=== PATIENT | female | born 1970 | race Two or more races ===

== ENCOUNTER 2020-08-07 11:59 | Outpatient (REF) | payer OTHER, SELFPAY | END 2020-08-07 12:00 | disposition home or self-care (01) | LOC: HO.LAB 11:59 | PROVIDERS: PCP Family Medicine Adult Medicine; Visit Provider Internal Medicine | DX: Z20.822 Contact with and (suspected) exposure to COVID-19 (principal) | CPT/HCPCS: 36415; C9803; U0003 ==

== ENCOUNTER 2020-08-24 12:47 | Outpatient (REF) | payer OTHER, SELFPAY | END 2020-08-24 12:48 | disposition home or self-care (01) | LOC: HO.LAB 12:47 | PROVIDERS: Visit Provider Internal Medicine | DX: Z20.822 Contact with and (suspected) exposure to COVID-19 (principal) | CPT/HCPCS: 36415; C9803; U0003 ==

== ENCOUNTER 2021-01-10 08:10 | Outpatient (REF) | payer OTHER, SELFPAY ==
[2021-01-10 13:49] LABS: CT PCR NOT DETECTED (Not Detect.); NG PCR NOT DETECTED (Not Detect.)
[2021-01-13 15:42] LABS: HPV mRNA E6/E7 rflx Not Detected (Not Detected)
== END 2021-01-10 08:11 | disposition home or self-care (01) ==
LOC: HO.LAB 08:10
PROVIDERS: Visit Provider Advanced Practice Midwife
DX: Z01.411 Encounter for gynecological examination (general) (routine) with abnormal findings (principal); Z11.51 Encounter for screening for human papillomavirus (HPV); Z11.3 Encounter for screening for infections with a predominantly sexual mode of transmission; Z20.2 Contact with and (suspected) exposure to infections with a predominantly sexual mode of transmission; N89.8 Other specified noninflammatory disorders of vagina; R23.2 Flushing
CPT/HCPCS: 87491; 87591; 87624; 88142

== ENCOUNTER 2021-01-25 09:41 | Outpatient (REF) | payer OTHER, SELFPAY ==
--- NOTE | ~2021-01-25 | MM_ITS ---
EXAMINATION: MM SCREENING DIGITAL BREAST TOMOSYNTHESIS, BILATERAL CLINICAL INFORMATION: Screening. Asymptomatic. The lifetime risk of breast cancer based on the Tyrer-Cuzick Model is 12.8%. COMPARISON: Mammography: June 15, 2016 and studies dating back to September 15, 2013 TECHNIQUE: Digital breast tomosynthesis is performed in both the craniocaudal and mediolateral oblique views along with computer-aided detection (CAD). Synthesized 2D images are generated from the tomosynthesis. FINDINGS: There are scattered areas of fibroglandular density (ACR BI-RADS breast composition Category b). There are no significant masses, abnormal calcifications, or other abnormalities. MM/MM tomosynthesis screening BI IMPRESSION: There are no significant changes from prior study. ASSESSMENT: BI-RADS 1: Negative RECOMMENDATION: Routine annual mammography screening. This patient's information was entered into a reminder system with a target due date for their next mammogram.
--- NOTE | 2021-01-25 09:49 | EMG_ITS ---
Left median and ulnar motor and sensory studies were performed. Left radial sensory study was performed and paraspinal muscles were tested with a needle. IMPRESSION: Mild left median neuropathy across carpal tunnel. MD LAKHWINDER Luciano/GONZALEZ / [id number]
== END 2021-01-25 09:42 | disposition home or self-care (01) ==
LOC: HO.NEURO 09:41
PROVIDERS: PCP Internal Medicine; Visit Provider Internal Medicine
DX: Z12.31 Encounter for screening mammogram for malignant neoplasm of breast (principal); R20.0 Anesthesia of skin
CPT/HCPCS: 77063; 77067; 95886; 95909

== ENCOUNTER 2021-01-26 09:16 | Observation (INO) | payer OTHER, SELFPAY ==
[2021-01-26] VITALS (7 sets, daily range): BP systolic 110–146; BP diastolic 54–70; PULSE 60–79; RESP 16–20; TEMP 36–36.6; O2SAT 97–100; BMI 33.3; BMI 34.2
--- NOTE | ~2021-01-26 | CT_ITS ---
EXAMINATION: CT ABDOMEN AND PELVIS WITH CONTRAST CLINICAL INFORMATION: Abdominal/epigastric pain COMPARISON: Previous CT of the abdomen and pelvis August 2017 TECHNIQUE: Multidetector volumetric images were obtained from the superior aspect of the liver through the pubic symphysis following administration 85 mL of Omnipaque 350 intravenous contrast. Sagittal and coronal reformatted images were obtained on the technologist's workstation. Oral contrast: Yes This CT examination was performed using dose optimization techniques as appropriate, variously including the following: *Automated exposure control *Adjustment of mA and/or kV according to patient size (this includes techniques or standardized protocols for targeted exams where dose is matched to indication/reason for exam; i.e. extremities or head) *Use of iterative reconstruction technique DLP: 1003 mGy-cm FINDINGS: LUNG BASES: The visualized lung bases are unremarkable. LIVER, GALLBLADDER, AND BILIARY TREE: The liver is normal in size, shape, and attenuation. No focal hepatic lesion. The gallbladder is been removed. There is mild intra and extrahepatic biliary duct dilatation. This may be normal postcholecystectomy. PANCREAS: Unremarkable. SPLEEN: Unremarkable. ADRENAL GLANDS: Unremarkable. KIDNEYS AND URETERS: The kidneys are normal in size, shape, and attenuation. No hydronephrosis, hydroureter, or calculi seen. No perinephric stranding. BLADDER: Not optimally distended. GASTROINTESTINAL TRACT: The small and large bowel are unremarkable. Tip of the appendix is slightly dilated measuring 9 mm and fluid-filled. The base of the appendix is normal. The periappendiceal fat is normal. There is no fluid seen. Findings are questionable for early tip appendicitis. There is mild wall thickening and low attenuation in the wall of the cecum and proximal ascending colon. There are prominent vasa recta. Findings are questionable for mild colitis. There are postsurgical changes following gastric bypass. ABDOMINAL WALL: No significant hernia is appreciated. LYMPH NODES: Normal. VASCULAR: Unremarkable. PELVIC VISCERA: There is trace fluid in the pelvis. The uterus and adnexa are unremarkable. OSSEOUS STRUCTURES: There is degenerative disc disease at L4-L5. CT/CT abdomen pelvis w con IMPRESSION: Slightly dilated fluid-filled tip of the appendix. Findings are questionable for early tip appendicitis. Mild wall thickening and low attenuation in the wall of the cecum and proximal ascending colon and prominent vasa recta questionable for mild colitis. Postsurgical change following gastric bypass.
--- NOTE | 2021-01-26 11:03 | ECG_ITS ---
Test Reason : ABDOMINAL PAIN Blood Pressure : / mmHG Vent. Rate : 063 BPM Atrial Rate : 063 BPM P-R Int : 132 ms QRS Dur : 090 ms QT Int : 412 ms P-R-T Axes : 010 011 005 degrees QTc Int : 421 ms Normal sinus rhythm Normal ECG When compared to the previous EKG of No significant changes seen Referred By: Amisha Head Electronically Signed By:HUANG HERRERA MD
[2021-01-26 11:41] LABS: MANUAL DIFF FLAG NO
[2021-01-26 11:44] LABS: Basophils Percent Auto 0.3 % (0-2); Hematocrit 33.7 % (37-47); Hemoglobin 10.1 g/dl (12.0-16.0); Imm Gran Abs Auto 0.03 X10*3/uL (0.00-0.03); Imm Gran Pct Auto 0.3 % (0.0-0.4); Lymphocytes Absolute Auto 0.9 X10*3/uL (1.2-4.9); Lymphocytes Percent Auto 8.1 % (20-40); Mean Corpuscular Volume 80.2 fL (80-98); Monocytes Absolute Auto 0.5 X10*3/uL (0.1-1.2); Neutrophils Absolute Auto 9.7 X10*3/uL (2.0-8.3); Neutrophils Percent Auto 87.3 % (45-73); Platelet Count 310 X10*3/uL (160-400); Red Cell Distribution Width 16.8 % (11.0-16.0); White Blood Count 11.1 X10*3/uL (4.8-10.8)
--- NOTE | 2021-01-26 11:51 | ED_ITS ---
HPI - Abdominal Pain General Chief Complaint: Abdominal Pain Stated Complaint: ABD PAIN Time Seen by Provider: 01/26/21 11:02 Source: patient Mode of arrival: ambulatory Limitations: no limitations History of Present Illness HPI narrative: 50 y/o healthy female with history of cholecystectomy in the past, s/p gastric bypass 2003 presents to the ER with acute onset of epigastric/central pain that woke her from sleep at midnight last night. She states the pain is constant, sharp and cramping at the same time. It does not radiate. She has no nausea, vomiting, diarrhea, SOB or chest pain. She denies fever or chills. MD elicited complaint: abdominal pain Pertinent past history: none Onset (ago): hour(s) (12) Pain Consistency: constant Location: epigastric Severity: severe Pain scale (0-10): 10 Quality: cramping and sharp Radiation: none Migration to: no migration Exacerbating factors: nothing Relieving factors: nothing Associated symptoms: denies other symptoms Related Data Home Medications Medication Instructions Recorded Confirmed No Known Home Meds 01/26/21 01/26/21 Allergies Allergy/AdvReac Type Severity Reaction Status Date / Time morphine [MORPHINE] AdvReac Intermediate BAD Verified 01/10/21 08:22 REACTION , respiratory, SOB Review of Systems Review of Systems Constitutional: No Fever, No Chills ENT/Mouth: No sore throat, No Rhinorrhea, No Swallowing Difficulty Cardiovascular: No Chest Pain, No SOB, No Orthopnea, No Edema Respiratory: No Cough, No Sputum, No Wheezing, No dyspnea Gastrointestinal: No Nausea, No Vomiting, No Diarrhea, + abdominal Pain, No Hematochezia, No Melena Genitourinary: No Dysuria, No Urinary Frequency, No Hematuria Musculoskeletal: No joint pain, No Myalgias Skin: No Skin Lesions, No rash Neuro: No Weakness, No Numbness, No Dizziness, No Headache Psych: + Anxiety/Panic, No Depression Heme/Lymph: No Bruising, No Lymphadenopathy Endocrine: No Polyuria, No Polydipsia Physical Exam Vital Signs: Vital Signs: Last Vital Signs Temp 97.8 F 01/26/21 13:35 Pulse 62 01/26/21 13:35 Resp 20 01/26/21 13:35 BP 133/64 01/26/21 13:35 Pulse Ox 100 01/26/21 13:35 Body Mass Index 33.3 Appearance: Alert. Oriented X3. No acute distress. Eyes: Pupils equal, round and reactive to light. ENT: Pharynx normal. Neck: Normal inspection. Neck supple. CVS: Normal heart rate and rhythm. Pulses normal. Respiratory: No respiratory distress. Breath sounds normal. Abdomen: Soft with epigastric and periumbilical tenderness and guarding. +BS x4 Skin: Skin warm and dry. Normal skin color. Normal skin turgor. No rashes. Extremities: No lower extremity edema. Neuro: Oriented X 3. No motor deficit. No sensory deficit. Course Course Course Narrative: 50 y/o female presenting with acute onset of severe epigastric pain that started last night. Concern for gastrtitis, GERD, retained biliary stone, pancreatitis, or possible cardiac etiology. EKG and labs ordered as well as GI cocktail. Will reassess Reevaluation(s) Reevaluation #1: Patient continues to c/o severe abdominal pain depsite GI cocktail. IV Morphine ordered as well as CT scan for further evaluation. Reevaluation #2: CT scan Slightly dilated fluid-filled tip of the appendix. Findings are questionable for early tip appendicitis. Mild wall thickening and low attenuation in the wall of the cecum and proximal ascending colon and prominent vasa recta questionable for mild colitis. Postsurgical change f ollowing gastric bypass. Lactic acid, blood cultures, IVF and Zosyn ordered. Not septic at this time. Dr. Hudson consulted for admission. Reevaluation #3: Dr. Hudson evaluted the patient and will admit for further management. Consultations Consultation #1: General Surgery - Dr. Hudson [facility] - Abdominal Pain Lab Data Attestation: I reviewed the patient's lab results. Result diagrams: 01/26/21 11:35 01/26/21 11:35 Labs: Lab Results 01/26/21 01/26/21 01/26/21 Range/Units 11:35 11:35 11:35 WBC 11.1 H (4.8-10.8) X10*3/uL RBC 4.20 (4.20-5.50) X10*6/uL Hgb 10.1 L (12.0-16.0) g/dl Hct 33.7 L (37-47) % MCV 80.2 (80-98) fL MCH 24.0 L (27.0-33.0) pg MCHC 30.0 L (31.0-35.0) g/dl RDW 16.8 H (11.0-16.0) % Plt Count 310 (160-400) X10*3/uL MPV 10.0 (9.4-12.3) fL Immature Gran % (Auto) 0.3 (0.0-0.4) % Neut % (Auto) 87.3 H (45-73) % Lymph % (Auto) 8.1 L (20-40) % [place] % (Auto) 4.0 (2-11) % Eos % (Auto) 0.0 (0-4) % Baso % (Auto) 0.3 (0-2) % Lymph # (Auto) 0.9 L (1.2-4.9) X10*3/uL [place] # (Auto) 0.5 (0.1-1.2) X10*3/uL Eos # (Auto) 0.0 (0.0-0.4) X10*3/uL Baso # (Auto) 0.0 (0.0-0.2) X10*3/uL Abs Immat Gran (auto) 0.03 (0.00-0.03) X10*3/uL Absolute Neuts (auto) 9.7 H (2.0-8.3) X10*3/uL Absolute Nucleated RBC 0.000 (0.0-0.012) X10*3/uL Nucleated RBC % (auto) 0.0 (0.0-0.2) /100WBC Hold Blue Top Sodium 138 (135-145) mmol/L Potassium 4.2 (3.3-5.1) mmol/L Chloride 106 (96-108) mmol/L Carbon Dioxide 23 (22-29) mmol/L Anion Gap 13 (12-20) BUN 12 (9-16) mg/dL Creatinine 0.68 (0.5-1.4) mg/dL Estim Creat Clear Calc 122.0 Estimated GFR > 60 Random Glucose 109 (60-115) mg/dL Calcium 9.1 (8.4-10.2) mg/dL Magnesium 2.2 (1.6-2.6) mg/dL Total Bilirubin 0.4 (0.0-1.0) mg/dL Direct Bilirubin 0.2 (0.0-0.5) mg/dL AST 14 (5-31) U/L ALT 10 (0-31) U/L Alkaline Phosphatase 61 (39-117) U/L Troponin I High Sens < 3.5 (<3.5-17.0) ng/L Total Protein 7.4 (6.5-8.0) g/dL Albumin 4.3 (3.5-5.0) g/dL Lipase (8-78) U/L Urine Color Urine Appearance Urine pH (5.0-8.0) Ur Specific [place] (1.005-1.025) Urine Protein (NEG-TRACE) MG/DL Urine Glucose (UA) (NEG) MG/DL Urine Ketones (NEG) MG/DL Urine Blood (NEG) Urine Nitrite (NEG) Ur Leukocyte Esterase (NEG) 01/26/21 01/26/21 01/26/21 Range/Units 11:35 11:36 13:20 WBC (4.8-10.8) X10*3/uL RBC (4.20-5.50) X10*6/uL Hgb (12.0-16.0) g/dl Hct (37-47) % MCV (80-98) fL MCH (27.0-33.0) pg MCHC (31.0-35.0) g/dl RDW (11.0-16.0) % Plt Count (160-400) X10*3/uL MPV (9.4-12.3) fL Immature Gran % (Auto) (0.0-0.4) % Neut % (Auto) (45-73) % Lymph % (Auto) (20-40) % [place] % (Auto) (2-11) % Eos % (Auto) (0-4) % Baso % (Auto) (0-2) % Lymph # (Auto) (1.2-4.9) X10*3/uL [place] # (Auto) (0.1-1.2) X10*3/uL Eos # (Auto) (0.0-0.4) X10*3/uL Baso # (Auto) (0.0-0.2) X10*3/uL Abs Immat Gran (auto) (0.00-0.03) X10*3/uL Absolute Neuts (auto) (2.0-8.3) X10*3/uL Absolute Nucleated RBC (0.0-0.012) X10*3/uL Nucleated RBC % (auto) (0.0-0.2) /100WBC Hold Blue Top SEE NOTE Sodium (135-145) mmol/L Potassium (3.3-5.1) mmol/L Chloride (96-108) mmol/L Carbon Dioxide (22-29) mmol/L Anion Gap (12-20) BUN (9-16) mg/dL Creatinine (0.5-1.4) mg/dL Estim Creat Clear Calc Estimated GFR Random Glucose (60-115) mg/dL Calcium (8.4-10.2) mg/dL Magnesium (1.6-2.6) mg/dL Total Bilirubin (0.0-1.0) mg/dL Direct Bilirubin (0.0-0.5) mg/dL AST (5-31) U/L ALT (0-31) U/L Alkaline Phosphatase (39-117) U/L Troponin I High Sens (<3.5-17.0) ng/L Total Protein (6.5-8.0) g/dL Albumin (3.5-5.0) g/dL Lipase 29 (8-78) U/L Urine Color YELLOW Urine Appearance CLEAR Urine pH 6.0 (5.0-8.0) Ur Specific [place] 1.020 (1.005-1.025) Urine Protein NEG (NEG-TRACE) MG/DL Urine Glucose (UA) NEG (NEG) MG/DL Urine Ketones 5 (NEG) MG/DL Urine Blood NEG (NEG) Urine Nitrite NEG (NEG) Ur Leukocyte Esterase NEG (NEG) ECG Data Attestation: I personally reviewed and interpreted this ECG as follows: ECG interpretation date: 01/26/21 ECG interpretation time: 12:58 Interpretation: normal sinus rhythm, HR 63 bpm, OR interval is normal, isoloated inverted t-wave in V1. NO ST segment elevations or depressions. Discharge Plan Discharge Prescriptions: No Action No Known Home Meds RF: 0 PMFSH Past Medical History Attestation statement: The following information was validated with the patient. Medical History Arm numbness Left knee pain Left shoulder pain Obese Screening for cervical cancer Surgical History H/O gastric bypass Hx laparoscopic cholecystectomy Hx of tubal ligation Family History Family History Mother No problems noted. Father No problems noted. Social History Social History Alcohol intake: former Patient Tobacco Use Status: Never used Tobacco Advance Directives: Yes Advance Directives Information Provided: No Advance Directives on File: No
[2021-01-26] MEDS: Magnesium Hydrox/Alum Hydrox 30 ML ORAL.SUSP PO (12:01)
[2021-01-26] MEDS: PHENobarb/Hyoscy/Atropine/Scop 10 ML ELIXIR PO (12:01)
[2021-01-26] MEDS: Lidocaine HCl Viscous 2 % 15 ML SOLUTION MUCOUS MEM (12:02)
[2021-01-26 12:03] LABS: Alanine Aminotransferase 10 U/L (0-31); Albumin Level 4.3 g/dL (3.5-5.0); Alkaline Phosphatase 61 U/L (39-117); Anion Gap 13 (12-20); Aspartate Amino Transferase 14 U/L (5-31); Bilirubin Direct 0.2 mg/dL (0.0-0.5); Bilirubin Total 0.4 mg/dL (0.0-1.0); Blood Urea Nitrogen 12 mg/dL (9-16); Calcium 9.1 mg/dL (8.4-10.2); Carbon Dioxide 23 mmol/L (22-29); Chloride 106 mmol/L (96-108); Estimated Glomerular Filt Rate > 60; Glucose Random 109 mg/dL (60-115); Magnesium 2.2 mg/dL (1.6-2.6); Potassium 4.2 mmol/L (3.3-5.1); Sodium 138 mmol/L (135-145); Total Protein 7.4 g/dL (6.5-8.0)
[2021-01-26 12:04] LABS: Lipase 29 U/L (8-78)
[2021-01-26 12:06] LABS: Troponin-I High Sensitivity < 3.5 ng/L (<3.5-17.0)
[2021-01-26] MEDS: Morphine Sulfate 4 MG/ML CARTRIDGE IVPUSH ×2 (12:06→16:11)
[2021-01-26] MEDS: Omeprazole 40 MG CAPSULE.DR PO (13:14)
[2021-01-26 13:29] LABS: Glucose Urine UA NEG (NEG); Leukocyte Esterase Urine NEG (NEG); Nitrite Urine NEG (NEG); Urine Blood NEG (NEG); Urine Ketones 5 MG/DL (NEG); Urine Protein NEG (NEG-TRACE)
[2021-01-26 13:30] LABS: Appearance Urine CLEAR; Color Urine YELLOW
[2021-01-26] MEDS: iohexoL 350 MG/ML 100 ML INFUS..BTL IV (13:42)
--- NOTE | 2021-01-26 14:58 | PM.HPGS ---
History of Present Illness History of Present Illness Date of Service: 01/26/21 Chief complaint: ABD PAIN Narrative: Deepali ALAS is a 50 year old female presenting to the emergency department with complaints of abdominal pain in the periumbilical location. The pain began suddenly at around 03:00 and woke her from sleep. She subsequently presented to the ED with complaints of 10/10 abdominal pain. She denies a previous history of similar pain. She denies nausea or vomiting but does report anorexia. She denies fever or chills. In the emergency department she was noted to be tender in the epigastrium and right lower quadrant. Workup with laboratories revealed elevated WBC of 11. CT of the abdomen and pelvis revealed a slightly thickened appendix at the tip with a normal base. No surrounding inflammation or fluid was identified. Changes were noted in the cecum suggestive of a possible colitis as well. The patient is admitted for observation and IV antibiotics with possible early appendicitis or colitis. Review of Systems Review of Systems: Yes all other systems are reviewed and are negative Constitutional: Constitutional: Reports anorexia, Denies chills and Denies fever(s) Cardiovascular: Cardiovascular: Denies chest pain, Denies irregular heart rhythm and Denies leg edema Respiratory: Respiratory: Denies chest congestion, Denies cough and Denies wheezing Gastrointestinal: Gastrointestinal: Reports abdominal pain, Denies hematochezia, Denies constipation, Denies diarrhea, Denies nausea and Denies vomiting Genitourinary: Genitourinary: Reports no additional female genitourinary complaints Hematologic/Lymphatic: Hematologic/Lymphatic: Denies lymphadenopathy Allergic/Immunologic: Allergic/Immunologic: Denies wheezing PMFSH Past Medical History Medical History Arm numbness Left knee pain Left shoulder pain Obese Screening for cervical cancer Family History Family History Mother No problems noted. Father No problems noted. Surgical History Surgical History H/O gastric bypass Hx laparoscopic cholecystectomy Hx of tubal ligation Social History Social History Alcohol intake: former Patient Tobacco Use Status: Never used Tobacco Advance Directives: Yes Advance Directives Information Provided: No Advance Directives on File: No Meds Allergies Allergy/AdvReac Type Severity Reaction Status Date / Time morphine [MORPHINE] AdvReac Intermediate BAD Verified 01/10/21 08:22 REACTION , respiratory, SOB Active Medications: Current Medications Generic Name Dose Route Start Last Admin Trade Name Freq PRN Reason Stop Dose Admin Sodium Chloride 1,000 mls @ 999 mls/hr 01/26/21 14:30 Ns IVCONT 01/26/21 15:30 .[id number] [facility] Pharmacy Consult 1 each 01/26/21 14:18 Consult Rx Perform Med Rec MISCELLANE ONCE PRN Consult order Home Medications Medication Instructions Recorded Confirmed Last Taken Type No Known Home Meds 01/26/21 01/26/21 Unknown History Physical Exam Vital Signs: Vital Signs: Last Vital Signs Temp 97.8 F 01/26/21 13:35 Pulse 62 01/26/21 13:35 Resp 20 01/26/21 13:35 BP 133/64 01/26/21 13:35 Pulse Ox 100 01/26/21 13:35 Body Mass Index 33.3 Const: General: cooperative, comfortable, no acute distress, well developed, alert and awake Nutritional Appearance: well nourished Orientation/consciousness: patient oriented x3 Limitations: no limitations Eyes: Sclerae: sclerae normal EOM: EOMs intact bilaterally Resp: Effort & Inspection: normal respiratory effort, no cough, no stridor and not tachypneic Auscultation: clear to auscultation bilaterally Cardio: Jugular venous distension: no JVD Rate: regular rate Rhythm: regular rhythm GI: Inspection: Yes normal to inspection Palpation (GI): Soft to palpation, Tenderness to palpation present (GI) in the RLQ and periumbilically, no guarding, not rigid and No Rebound tenderness present Percussion: Yes normal to percussion Auscultation: normal bowel sounds Rectal Exam - Female: deferred Skin: General skin exam: no rashes or lesions noted Neuro: General: patient oriented x3 Extrem: General: Yes no clubbing, cyanosis or edema Results Results Labs: Short CBC 01/26/21 Range/Units 11:35 WBC 11.1 H (4.8-10.8) X10*3/uL Hgb 10.1 L (12.0-16.0) g/dl Hct 33.7 L (37-47) % Plt Count 310 (160-400) X10*3/uL BMP 01/26/21 11:35 Sodium 138 Potassium 4.2 Chloride 106 Carbon Dioxide 23 BUN 12 Creatinine 0.68 Calcium 9.1 Liver Function 01/26/21 Range/Units 11:35 Total Bilirubin 0.4 (0.0-1.0) mg/dL Direct Bilirubin 0.2 (0.0-0.5) mg/dL AST 14 (5-31) U/L ALT 10 (0-31) U/L Alkaline Phosphatase 61 (39-117) U/L Albumin 4.3 (3.5-5.0) g/dL Urine 01/26/21 Range/Units 13:20 Urine Color YELLOW Urine Appearance CLEAR Urine pH 6.0 (5.0-8.0) Ur Specific [place] 1.020 (1.005-1.025) Urine Protein NEG (NEG-TRACE) MG/DL Urine Glucose (UA) NEG (NEG) MG/DL Assessment and Plan (1) Appendicitis: Status: Acute patient presents with the onset of abdominal pain and periumbilical location since this morning found on workup to have a mildly elevated WBC (11) and minimal changes on CT the abdomen pelvis with thickened tip of the appendix with no other inflammatory changes surrounding the appendix as well as thickening of the cecum suggestive of a colitis. Findings may suggest early appendicitis verses colitis. The findings were discussed in detail with the patient. Options include admission with IV antibiotics and observation verses laparoscopic appendectomy. The relative risks and benefits of each were discussed and the patient is comfortable with admission for observation with IV antibiotics. If he has improved by tomorrow she can be converted to oral antibiotics and discharged to home. On the other hand if her symptoms seem to worsen, laparoscopic appendectomy may be warranted. She will be kept NPO on IV fluids and antibiotics. A repeat CBC will be ordered for the a.m.. Quality Stroke Does the patient have a stroke diagnosis?: No VTE Prior VTE?: No VTE Risk Level:: Medical - low VTE Device Contraindication: N/A - Device Ordered VTE Drug Contraindication: Treatment Not Indicated Procedures Date of Service Date of Service: 01/26/21
[2021-01-26] MEDS: Piperacillin Sodium/Tazobactam 3.375 GM in 0.9 % Sodium Chloride 50 ML IV ×2 (16:01→21:01)
[2021-01-26] MEDS: 0.9 % Sodium Chloride 1,000 ML 999 ML IVCONT (16:01)
[2021-01-26 16:23] LABS: COVID-19 Test Negative (Negative)
[2021-01-26] MEDS: Dextrose 5 % and Lactated Ring 1,000 ML 125 ML IVCONT (19:33)
[2021-01-26] MEDS: 0.9 % Sodium Chloride Flush 3 ML SYRINGE IVFLUSH (21:03)
[2021-01-26] MEDS: Acetaminophen 325 MG TABLET 650 MG PO (21:17)
[2021-01-26] MEDS: oxyCODONE HCl Immed Release 5 MG TABLET PO (21:18)
[2021-01-27 03:48] VITALS: BP 106/51; PULSE 66; RESP 16; TEMP 36.4; O2SAT 99
[2021-01-27] MEDS: Piperacillin Sodium/Tazobactam 3.375 GM in 0.9 % Sodium Chloride 50 ML IV ×4 (03:48→20:35)
[2021-01-27] MEDS: Dextrose 5 % and Lactated Ring 1,000 ML 125 ML IVCONT ×3 (03:49→20:31)
[2021-01-27 06:44] LABS: MANUAL DIFF FLAG NO
[2021-01-27 06:55] LABS: Basophils Percent Auto 0.4 % (0-2); Eosinophils Absolute Auto 0.1 X10*3/uL (0.0-0.4); Eosinophils Percent Auto 1.1 % (0-4); Hematocrit 29.5 % (37-47); Imm Gran Abs Auto 0.02 X10*3/uL (0.00-0.03); Imm Gran Pct Auto 0.4 % (0.0-0.4); Lymphocytes Absolute Auto 1.1 X10*3/uL (1.2-4.9); Lymphocytes Percent Auto 20.4 % (20-40); Mean Corpuscular HGB Conc 30.5 g/dl (31.0-35.0); Mean Corpuscular Hemoglobin 24.5 pg (27.0-33.0); Mean Corpuscular Volume 80.2 fL (80-98); Mean Platelet Volume 10.8 fL (9.4-12.3); Monocytes Absolute Auto 0.5 X10*3/uL (0.1-1.2); Monocytes Percent Auto 8.1 % (2-11); Neutrophils Absolute Auto 3.9 X10*3/uL (2.0-8.3); Neutrophils Percent Auto 69.6 % (45-73); Platelet Count 249 X10*3/uL (160-400); Red Blood Count 3.68 X10*6/uL (4.20-5.50); Red Cell Distribution Width 16.7 % (11.0-16.0); White Blood Count 5.6 X10*3/uL (4.8-10.8)
[2021-01-27 08:00] VITALS: BP 99/56; PULSE 71; RESP 16; TEMP 36.5; O2SAT 98
--- NOTE | 2021-01-27 09:01 | P.PNGS_ITS ---
Subjective Subjective Date of Service: 01/27/21 Interval history: feels better still has mild pain, diffuse described more as bloating but much improved than yesterday no N/V good flatus Physical Exam Vital Signs: Vital Signs: Last Vital Signs Temp 97.7 F 01/27/21 08:00 Pulse 71 01/27/21 08:00 Resp 16 01/27/21 08:00 BP 99/56 L 01/27/21 08:00 Pulse Ox 98 01/27/21 08:00 Body Mass Index 34.2 Laboratory Results - last 24 hr 01/26/21 01/26/21 01/26/21 11:35 11:35 11:35 WBC 11.1 H RBC 4.20 Hgb 10.1 L Hct 33.7 L MCV 80.2 MCH 24.0 L MCHC 30.0 L RDW 16.8 H Plt Count 310 MPV 10.0 Immature Gran % (A uto) 0.3 Neut % (Auto) 87.3 H Lymph % (Auto) 8.1 L [place] % (Auto) 4.0 Eos % (Auto) 0.0 Baso % (Auto) 0.3 Lymph # (Auto) 0.9 L [place] # (Auto) 0.5 Eos # (Auto) 0.0 Baso # (Auto) 0.0 Abs Immat Gran (au to) 0.03 Absolute Neuts (au to) 9.7 H Absolute Nucleated RBC 0.000 Nucleated RBC % (a uto) 0.0 Hold Blue Top Sodium 138 Potassium 4.2 Chloride 106 Carbon Dioxide 23 Anion Gap 13 BUN 12 Creatinine 0.68 Estim Creat Clear Calc 122.0 Estimated GFR > 60 Random Glucose 109 Lactic Acid Calcium 9.1 Magnesium 2.2 Total Bilirubin 0.4 Direct Bilirubin 0.2 AST 14 ALT 10 Alkaline Phosphata se 61 Troponin I High Se ns < 3.5 Total Protein 7.4 Albumin 4.3 Lipase Urine Color Urine Appearance Urine pH Ur Specific Gravit y Urine Protein Urine Glucose (UA) Urine Ketones Urine Blood Urine Nitrite Ur Leukocyte Racquel ase COVID-19 ([facility]) COVID-19 Clin Com 01/26/21 01/26/21 01/26/21 11:35 11:36 13:20 WBC RBC Hgb Hct MCV MCH MCHC RDW Plt Count MPV Immature Gran % (A uto) Neut % (Auto) Lymph % (Auto) [place] % (Auto) Eos % (Auto) Baso % (Auto) Lymph # (Auto) [place] # (Auto) Eos # (Auto) Baso # (Auto) Abs Immat Gran (au to) Absolute Neuts (au to) Absolute Nucleated RBC Nucleated RBC % (a uto) Hold Blue Top SEE NOTE Sodium Potassium Chloride Carbon Dioxide Anion Gap BUN Creatinine Estim Creat Clear Calc Estimated GFR Random Glucose Lactic Acid Calcium Magnesium Total Bilirubin Direct Bilirubin AST ALT Alkaline Phosphata se Troponin I High Se ns Total Protein Albumin Lipase 29 Urine Color YELLOW Urine Appearance CLEAR Urine pH 6.0 Ur Specific Gravit y 1.020 Urine Protein NEG Urine Glucose (UA) NEG Urine Ketones 5 Urine Blood NEG Urine Nitrite NEG Ur Leukocyte Racquel ase NEG COVID-19 ([facility]) COVID-[place] [employer] 01/26/21 01/26/21 01/27/21 15:31 15:59 06:03 WBC 5.6 RBC 3.68 L Hgb 9.0 L Hct 29.5 L MCV 80.2 MCH 24.5 L MCHC 30.5 L RDW 16.7 H Plt Count 249 MPV 10.8 Immature Gran % (A uto) 0.4 Neut % (Auto) 69.6 Lymph % (Auto) 20.4 [place] % (Auto) 8.1 Eos % (Auto) 1.1 Baso % (Auto) 0.4 Lymph # (Auto) 1.1 L [place] # (Auto) 0.5 Eos # (Auto) 0.1 Baso # (Auto) 0.0 Abs Immat Gran (au to) 0.02 Absolute Neuts (au to) 3.9 Absolute Nucleated RBC 0.000 Nucleated RBC % (a uto) 0.0 Hold Blue Top Sodium Potassium Chloride Carbon Dioxide Anion Gap BUN Creatinine Estim Creat Clear Calc Estimated GFR Random Glucose Lactic Acid 1.0 Calcium Magnesium Total Bilirubin Direct Bilirubin AST ALT Alkaline Phosphata se Troponin I High Se ns Total Protein Albumin Lipase Urine Color Urine Appearance Urine pH Ur Specific Gravit y Urine Protein Urine Glucose (UA) Urine Ketones Urine Blood Urine Nitrite Ur Leukocyte Racquel ase COVID-19 ([facility]) Negative COVID-19 Clin Com See Note Const: General: comfortable and no acute distress Resp: Effort & Inspection: normal respiratory effort Cardio: Rate: regular rate GI: Other: very minimal tenderness diffusely, not localized to RLQ Inspection: No distended Palpation (GI): Soft to palpation, not firm, no guarding and not rigid Progress Note: A&P Assessment and plan (1) Abdominal pain: Status: Acute Assessment and Plan: pain much improved no significant tenderness WBC normal overall picture not c/w acute appendicitis despite CT findings clear liquids, advance as tolerated exam very benign Hg low - monitor continue abx for now Fall Risk Details Current Medications: Current Medications Generic Name Dose Route Start Last Admin Trade Name Freq PRN Reason Stop Dose Admin Acetaminophen 650 mg 01/26/21 18:47 01/26/21 21:17 Acetaminophen 325 Mg Tablet PO 650 mg Q6H PRN Administration Pain, Mild (Pain Scale 1-3) Hydromorphone HCl 0.5 mg 01/26/21 18:47 Hydromorphone Hcl 0.5 Mg/0.5 Ml Syringe IVPUSH Q4H PRN Pain, Severe (Pain Scale 7-10) Piperacillin Sod/Tazobactam 50 mls @ 100 mls/hr 01/26/21 22:00 01/27/21 04:21 Sod 3.375 gm/ Sodium Chloride IV Infused Q6H [facility] Infusion Dextrose/Lactated Ringer's 1,000 mls @ 125 mls/hr 01/26/21 18:47 01/27/21 04:22 D5lr IVCONT 125 mls/hr .Q8H [facility] Infusion Ondansetron HCl 4 mg 01/26/21 18:47 Ondansetron Hcl 4 Mg/2 Ml Vial IVPUSH Q8H PRN Nausea and Vomiting Oxycodone HCl 5 mg 01/26/21 18:47 01/26/21 21:18 Oxycodone Hcl Immed Release 5 Mg Tablet PO 5 mg Q6H PRN Administration Pain, Moderate (Pain Scale 4-6 Pharmacy Consult 1 each 01/26/21 14:18 Consult Rx Perform Med Rec MISCELLANE ONCE PRN Consult order Sodium Chloride 3 ml 01/26/21 18:47 01/26/21 21:03 0.9 % Sodium Chloride Flush 3 Ml Syringe IVFLUSH 3 ml QSHIFT [facility] Administration Zolpidem Tartrate 5 mg 01/26/21 18:47 Zolpidem Tartrate 5 Mg Tablet PO BEDTIME PRN Insomnia Time Spent With Patient Time: Total time spent is greater than 50% in coordination of care (as documented) at patient's floor/unit and/or counseling patient: Time with patient: 15 - 24 minutes Procedures Date of Service Date of Service: 01/27/21 Quality Stroke Does the patient have a stroke diagnosis?: No VTE Prior VTE?: No VTE Risk Level:: Surgical - low VTE Device Contraindication: N/A - Device Ordered VTE Drug Contraindication: Treatment Not Indicated
[2021-01-27] MEDS: 0.9 % Sodium Chloride Flush 3 ML SYRINGE IVFLUSH (09:06)
[2021-01-27] MEDS: oxyCODONE HCl Immed Release 5 MG TABLET PO ×2 (09:13→20:29)
--- NOTE | 2021-01-27 09:50 | MHC.CM.PN ---
HIRO 01/27/21 FEMALE 50 COLITIS LIVES ALONE, INDEPENDENT ALL FUNCTIONAL MOBILITY. [facility] HOME NO SERVICES FAMILY TRANSPORTATION. CM WILL FOLLOW TO ASSESS FOR A CHANGE IN SERVICES.
[2021-01-27 11:26] VITALS: BP 111/70; PULSE 61; RESP 17; TEMP 36.7; O2SAT 98
[2021-01-27] MEDS: Acetaminophen 325 MG TABLET 650 MG PO ×2 (12:45→20:30)
[2021-01-27 15:24] VITALS: BP 118/68; PULSE 66; RESP 18; TEMP 35.9; O2SAT 98
[2021-01-27 19:03] VITALS: BP 122/71; PULSE 65; RESP 18; TEMP 36.1; O2SAT 100
[2021-01-27 23:40] VITALS: BP 114/72; PULSE 70; RESP 16; TEMP 36.2; O2SAT 99
[2021-01-28 03:46] VITALS: BP 98/58; PULSE 59; RESP 16; TEMP 36; O2SAT 98
[2021-01-28] MEDS: Piperacillin Sodium/Tazobactam 3.375 GM in 0.9 % Sodium Chloride 50 ML IV ×4 (03:53→20:29)
[2021-01-28] MEDS: Dextrose 5 % and Lactated Ring 1,000 ML 125 ML IVCONT ×3 (03:55→20:28)
[2021-01-28 07:34] VITALS: BP 110/52; PULSE 70; RESP 17; TEMP 37.7; O2SAT 98
--- NOTE | 2021-01-28 09:54 | PM.PNGS ---
Subjective Subjective Date of Service: 01/28/21 Interval history: continues to feel better hungry and wants to eat minimal pain Physical Exam Vital Signs: Vital Signs: Last Vital Signs Temp 99.8 F 01/28/21 07:34 Pulse 70 01/28/21 07:34 Resp 17 01/28/21 07:34 BP 110/52 L 01/28/21 07:34 Pulse Ox 98 01/28/21 07:34 Body Mass Index 34.2 Const: General: comfortable and no acute distress Resp: Effort & Inspection: normal respiratory effort Cardio: Rate: regular rate GI: Palpation (GI): Soft to palpation, not firm, nontender and no guarding Progress Note: A&P Assessment and plan (1) Abdominal pain: Status: Acute Assessment and Plan: abdominal pain has resolved etiology uncertain - mild appendicitis versus Crohn's disease? Advance diet she looks well possible home later today or tomorrow with p.o. antibiotics WBC has been normal Fall Risk Details Current Medications: Current Medications Generic Name Dose Route Start Last Admin Trade Name Freq PRN Reason Stop Dose Admin Acetaminophen 650 mg 01/26/21 18:47 01/27/21 20:30 Acetaminophen 325 Mg Tablet PO 650 mg Q6H PRN Administration Pain, Mild (Pain Scale 1-3) Hydromorphone HCl 0.5 mg 01/26/21 18:47 Hydromorphone Hcl 0.5 Mg/0.5 Ml Syringe IVPUSH Q4H PRN Pain, Severe (Pain Scale 7-10) Piperacillin Sod/Tazobactam 50 mls @ 100 mls/hr 01/26/21 22:00 01/28/21 09:20 Sod 3.375 gm/ Sodium Chloride IV 100 mls/hr Q6H [facility] Administration Dextrose/Lactated Ringer's 1,000 mls @ 125 mls/hr 01/26/21 18:47 01/28/21 04:26 D5lr IVCONT 125 mls/hr .Q8H [facility] Infusion Ondansetron HCl 4 mg 01/26/21 18:47 Ondansetron Hcl 4 Mg/2 Ml Vial IVPUSH Q8H PRN Nausea and Vomiting Oxycodone HCl 5 mg 01/26/21 18:47 01/27/21 20:29 Oxycodone Hcl Immed Release 5 Mg Tablet PO 5 mg Q6H PRN Administration Pain, Moderate (Pain Scale 4-6 Pharmacy Consult 1 each 01/26/21 14:18 Consult Rx Perform Med Rec MISCELLANE ONCE PRN Consult order Sodium Chloride 3 ml 01/26/21 18:47 01/28/21 07:50 0.9 % Sodium Chloride Flush 3 Ml Syringe IVFLUSH Not Given QSHIFT [facility] Zolpidem Tartrate 5 mg 01/26/21 18:47 Zolpidem Tartrate 5 Mg Tablet PO BEDTIME PRN Insomnia Time Spent With Patient Time: Total time spent is greater than 50% in coordination of care (as documented) at patient's floor/unit and/or counseling patient: Time with patient: 15 - 24 minutes Procedures Date of Service Date of Service: 01/28/21 Quality Stroke Does the patient have a stroke diagnosis?: No VTE Prior VTE?: No VTE Risk Level:: Surgical - low VTE Device Contraindication: N/A - Device Ordered VTE Drug Contraindication: Treatment Not Indicated
[2021-01-28 11:56] VITALS: BP 129/72; PULSE 75; RESP 17; TEMP 36.8; O2SAT 100
--- NOTE | 2021-01-28 14:39 | MHC.CM.PN ---
PER REVIEW OF REPORTS, PLAN IS TO ADVANCE DIET. POSSIBLE DC TO HOME TODAY OR Friday01/29/2021.
[2021-01-28 15:33] VITALS: BP 111/62; PULSE 61; RESP 18; TEMP 36.1; O2SAT 100
[2021-01-28] MEDS: 0.9 % Sodium Chloride Flush 3 ML SYRINGE IVFLUSH (15:55)
[2021-01-28 18:59] VITALS: BP 98/60; PULSE 76; RESP 16; TEMP 36.1; O2SAT 98
[2021-01-28 23:49] VITALS: BP 111/66; PULSE 84; RESP 16; TEMP 36.6; O2SAT 100
[2021-01-29] MEDS: Acetaminophen 325 MG TABLET 650 MG PO (00:07)
[2021-01-29 03:13] VITALS: BP 99/50; PULSE 68; RESP 14; TEMP 36.9; O2SAT 98
[2021-01-29] MEDS: Dextrose 5 % and Lactated Ring 1,000 ML 125 ML IVCONT (05:03)
[2021-01-29] MEDS: Piperacillin Sodium/Tazobactam 3.375 GM in 0.9 % Sodium Chloride 50 ML IV ×2 (05:03→09:55)
[2021-01-29 07:14] VITALS: BP 98/49; PULSE 66; RESP 17; TEMP 36.8; O2SAT 98
--- NOTE | 2021-01-29 09:56 | PM.PNGS ---
Subjective Subjective Date of Service: 01/29/21 Interval history: feels well minimal right sided pain only with deep palpation toleratimg diet says she has had watery stools Physical Exam Vital Signs: Vital Signs: Last Vital Signs Temp 98.2 F 01/29/21 07:14 Pulse 66 01/29/21 07:14 Resp 17 01/29/21 07:14 BP 98/49 L 01/29/21 07:14 Pulse Ox 98 01/29/21 07:14 Body Mass Index 34.2 Const: Other: looks well General: comfortable and no acute distress Resp: Effort & Inspection: normal respiratory effort Cardio: Rate: regular rate GI: Other: very minimal tenderness on right side only with deep palpation Inspection: No distended Palpation (GI): Soft to palpation, not firm and no guarding Progress Note: A&P Assessment and plan (1) Appendicitis: Status: Acute Assessment and Plan: diagnosis uncertain - mild appendicitis versus inflammation of cecum? no appendicolith on CT much improved practically pain free good GI function check stools for C diff in view of watery stools possible home today on PO abx Fall Risk Details Current Medications: Current Medications Generic Name Dose Route Start Last Admin Trade Name Freq PRN Reason Stop Dose Admin Acetaminophen 650 mg 01/26/21 18:47 01/29/21 00:07 Acetaminophen 325 Mg Tablet PO 650 mg Q6H PRN Administration Pain, Mild (Pain Scale 1-3) Hydromorphone HCl 0.5 mg 01/26/21 18:47 Hydromorphone Hcl 0.5 Mg/0.5 Ml Syringe IVPUSH Q4H PRN Pain, Severe (Pain Scale 7-10) Piperacillin Sod/Tazobactam 50 mls @ 100 mls/hr 01/26/21 22:00 01/29/21 09:55 Sod 3.375 gm/ Sodium Chloride IV 100 mls/hr Q6H [facility] Administration Dextrose/Lactated Ringer's 1,000 mls @ 125 mls/hr 01/26/21 18:47 01/29/21 05:36 D5lr IVCONT 125 mls/hr .Q8H [facility] Infusion Ondansetron HCl 4 mg 01/26/21 18:47 Ondansetron Hcl 4 Mg/2 Ml Vial IVPUSH Q8H PRN Nausea and Vomiting Oxycodone HCl 5 mg 01/26/21 18:47 01/27/21 20:29 Oxycodone Hcl Immed Release 5 Mg Tablet PO 5 mg Q6H PRN Administration Pain, Moderate (Pain Scale 4-6 Pharmacy Consult 1 each 01/26/21 14:18 Consult Rx Perform Med Rec MISCELLANE ONCE PRN Consult order Sodium Chloride 3 ml 01/26/21 18:47 01/29/21 08:03 0.9 % Sodium Chloride Flush 3 Ml Syringe IVFLUSH Not Given QSHIFT [facility] Zolpidem Tartrate 5 mg 01/26/21 18:47 Zolpidem Tartrate 5 Mg Tablet PO BEDTIME PRN Insomnia Time Spent With Patient Time: Total time spent is greater than 50% in coordination of care (as documented) at patient's floor/unit and/or counseling patient: Time with patient: 15 - 24 minutes Procedures Date of Service Date of Service: 01/29/21 Quality Stroke Does the patient have a stroke diagnosis?: No VTE Prior VTE?: No VTE Risk Level:: Surgical - low VTE Device Contraindication: N/A - Device Ordered VTE Drug Contraindication: Treatment Not Indicated
--- NOTE | 2021-01-29 11:25 | MHC.CM.PN ---
PATIENT IS DISCHARGED HOME WITH NO SERVICES. RN AWARE OF PLAN.
--- NOTE | 2021-01-31 09:43 | P.DS_ITS ---
DS: Providers Provider Date of Service: 01/29/21 Date of admission: 01/26/21 16:21 Primary care physician: Gloria Becker MD DS: Diagnosis Discharge Diagnosis (1) Appendicitis: Status: Acute DS: Medications Discharge Medications Home Medications: Previous Rx's Medication Instructions Recorded amoxicillin-pot clavulanate 1 tab PO BID #14 tab 01/29/21 [Augmentin] DS: Summary Hospital Course Hospital Course: 50-year-old female admitted on 01/26/2021 because of umbilical pain. Her CT scan showed mild changes to the tip of the appendix as well as some mild inflammatory changes in the right colon suggestive of colitis versus appendicitis. Her white count was 11. She had a very benign exam. She was started on IV antibiotics. She denies any fever. Her abdominal exam improved significantly after 1st hospital day. She had a normal white count. She was therefore started on clear liquids and this was gradually advanced. She cont inued to improved significantly. She tolerated regular diet and had remained afebrile throughout her stay. Abdominal exam is very benign and she denied any significant pain or tenderness after her 1st hospital day. She was therefore discharged on January 29, 2021. At the time of her discharge, she was completely asymptomatic and did not have any fever. She had good GI functions. She was discharged with a prescription for Augmentin. The diagnosis was uncertain and it could have been a very early tip appendicitis versus colitis. Time Spent with Patient Time attestation: Total time spent providing and/or coordinating discharge services: Discharge coordination time: Greater than 30 minutes Quality: Stroke Does the patient have a stroke diagnosis?: No Physical Exam Vital Signs: Vital Signs: Last Vital Signs Temp 98.2 F 01/29/21 07:14 Pulse 66 01/29/21 07:14 Resp 17 01/29/21 07:14 BP 98/49 L 01/29/21 07:14 Pulse Ox 98 01/29/21 07:14 Body Mass Index 34.2 DS: Data Data Completed and Pending Labs on day of discharge: Preliminary micro results at discharge 01/26/21 15:59 Blood Culture - Preliminary Blood - Venous No growth after 48 hours. 01/26/21 15:31 Blood Culture - Preliminary Blood - Venous No growth after 48 hours. Discharge Plan Discharge Patient Disposition: Home, Self-Care Discharge Diagnosis: abdominal pain, question early appendicitis Referrals: Anup Hudson MD [Physician] - 2 Weeks Gloria Corona MD [Primary Care Provider] - 1 Week Discharge Medications: New amoxicillin-pot clavulanate [Augmentin] 875-125 mg tablet 1 tab PO BID Qty: 14 RF: 0 Discharge Orders: Discharge Order (Routine); Ordered 01/29/21 Ordered By: Amos Ramirez Activity on Discharge: As tolerated Stand Alone Forms: Patient Portal Discharge page Activity Restrictions/Additional Instructions: resume diet ffup with Dr. Hudson in 2 weeks - call office for appointment [phone] Care Plan Goals: finish course of antibiotics monitor of pain recurrence ffup in the office Health Concerns: abdominal pain possible appendicitis Plan of Treatment: oral antibiotics office ffup Assessment: doing well Discharge Date/Time: 01/29/21 13:52
== END 2021-01-29 13:52 | disposition home or self-care (01) ==
LOC: HO.ED 11:01 → HO.EDOVER 16:23 → HO.S3 17:44
PROVIDERS: Physician Assistant; Admitting Provider Surgery; Emergency Provider Emergency Medicine Emergency Medical Services; PCP Internal Medicine; Visit Provider Surgery
DX: K37 Unspecified appendicitis (principal); R10.13 Epigastric pain; E66.9 Obesity, unspecified; F41.9 Anxiety disorder, unspecified; Z68.33 Body mass index [BMI] 33.0-33.9, adult; Z90.49 Acquired absence of other specified parts of digestive tract; Z98.84 Bariatric surgery status; Z98.51 Tubal ligation status; Z88.5 Allergy status to narcotic agent
CPT/HCPCS: 36415; 74177; 80048; 80076; 81003; 83605; 83690; 83735; 84484; 85025; 87040; 87635; 93005; 96361; 96365; 96366; 96368; 96375; 96376; 99218; 99285; J2270; J2543; Q9967

== ENCOUNTER 2021-11-26 17:58 | Emergency (ER) | payer OTHER, SELFPAY | END 2021-11-26 20:37 | disposition left against medical advice (07) | LOC: HO.ED 20:23 | PROVIDERS: Emergency Provider Emergency Medicine; PCP Internal Medicine | DX: R05.9 Cough, unspecified (principal); R07.89 Other chest pain ==

== ENCOUNTER → 2021-12-04 12:14 | Outpatient (REF) | payer OTHER, SELFPAY ==
--- NOTE | 2021-12-04 12:20 | ECG_ITS ---
Test Reason : chest pain Blood Pressure : / mmHG Vent. Rate : 073 BPM Atrial Rate : 073 BPM P-R Int : 140 ms QRS Dur : 090 ms QT Int : 400 ms P-R-T Axes : 043 019 024 degrees QTc Int : 440 ms Normal sinus rhythm Normal ECG When compared with ECG of 26-JAN-2021 11:45, No significant change was found Referred By: Gloria Becker Electronically Signed By:HUANG HERRERA MD
[2021-12-04 12:38] LABS: MANUAL DIFF FLAG NO
[2021-12-04 12:58] LABS: Basophils Percent Auto 0.8 % (0-2); Eosinophils Absolute Auto 0.1 X10*3/uL (0.0-0.4); Eosinophils Percent Auto 2.1 % (0-4); Hematocrit 31.3 % (37.0-47.0); Hemoglobin 9.3 g/dl (12.0-16.0); Imm Gran Abs Auto 0.01 X10*3/uL (0.00-0.03); Imm Gran Pct Auto 0.3 % (0.0-0.4); Lymphocytes Absolute Auto 1.4 X10*3/uL (1.2-4.9); Mean Corpuscular HGB Conc 29.7 g/dl (31.0-35.0); Mean Corpuscular Hemoglobin 23.5 pg (27.0-33.0); Mean Corpuscular Volume 79.2 fL (80.0-98.0); Mean Platelet Volume 10.4 fL (9.4-12.3); Monocytes Absolute Auto 0.3 X10*3/uL (0.1-1.2); Monocytes Percent Auto 7.3 % (2-11); Neutrophils Percent Auto 53.5 % (45-73); Platelet Count 306 X10*3/uL (160-400); Red Blood Count 3.95 X10*6/uL (4.20-5.50); Red Cell Distribution Width 18.6 % (11.0-16.0); White Blood Count 3.8 X10*3/uL (4.8-10.8)
[2021-12-04 13:40] LABS: Alanine Aminotransferase 12 U/L (0-31); Albumin Level 3.7 g/dL (3.5-5.0); Alkaline Phosphatase 67 U/L (39-117); Anion Gap 10 (12-20); Aspartate Amino Transferase 16 U/L (5-31); Bilirubin Direct 0.2 mg/dL (0.0-0.5); Bilirubin Total 0.4 mg/dL (0.0-1.0); Blood Urea Nitrogen 12 mg/dL (9-16); Calcium 8.8 mg/dL (8.4-10.2); Carbon Dioxide 25 mmol/L (22-29); Chloride 109 mmol/L (96-108); Cholesterol 172 mg/dL; Estimated Glomerular Filt Rate > 60; Glucose Fasting 100 mg/dL (60-99); HDL Cholesterol 77 mg/dL; Iron 35 mcg/dL (30-160); LDL Cholesterol Calculated 79 mg/dl; Percent Iron Saturation 7 % (15-50); Potassium 4.3 mmol/L (3.3-5.1); Sodium 140 mmol/L (135-145); Total Iron Binding Capacity 472 mcg/dL (228-428); Total Protein 6.4 g/dL (6.5-8.0); Triglycerides 80 mg/dL; Unsaturated Iron Binding 437 ug/dL
[2021-12-04 13:53] LABS: Thyroid Stimulating Hormone 1.46 uIU/mL (0.32-4.0)
== END ==
LOC: HO.CARD 12:14
PROVIDERS: PCP Internal Medicine; Visit Provider Internal Medicine
DX: Z00.00 Encounter for general adult medical examination without abnormal findings (principal); R07.9 Chest pain, unspecified; E66.09 Other obesity due to excess calories; Z68.33 Body mass index [BMI] 33.0-33.9, adult; E78.5 Hyperlipidemia, unspecified; D64.9 Anemia, unspecified; B35.1 Tinea unguium
CPT/HCPCS: 36415; 80053; 80061; 80076; 82248; 83540; 84443; 85025; 93005

== ENCOUNTER 2023-08-22 12:17 | Emergency (ER) | payer OTHER, SELFPAY ==
--- NOTE | ~2023-08-22 | CT_ITS ---
EXAMINATION: CT ABDOMEN AND PELVIS WITHOUT CONTRAST CLINICAL INFORMATION: Left upper quadrant pain; history of gastric bypass. COMPARISON: Prior CT examinations, most recently 12/27/2020. TECHNIQUE: Multidetector volumetric imaging was performed from the superior aspect of the liver through the pubic symphysis. Sagittal and coronal reformatted images were obtained on the technologist's workstation. This CT examination was performed using dose optimization techniques as appropriate, variously including the following: *Automated exposure control *Adjustment of mA and/or kV according to patient size (this includes techniques or standardized protocols for targeted exams where dose is matched to indication/reason for exam; i.e. extremities or head) *Use of iterative reconstruction technique DLP: 703 mGy-cm FINDINGS: LUNG BASES: There is mild bibasilar dependent hypoaeration. LIVER, GALLBLADDER, AND BILIARY TREE: There is hepatomegaly, with a longitudinal span of 22.6 cm. The liver is normal in contour and attenuation. No focal hepatic lesion or biliary ductal dilatation is present. The gallbladder is surgically absent. PANCREAS: Unremarkable. SPLEEN: Unremarkable. ADRENAL GLANDS: Unremarkable. KIDNEYS AND URETERS: The kidneys are normal in size, shape, and attenuation. No hydronephrosis, hydroureter, or calculi seen. No perinephric stranding. BLADDER: Unremarkable. GASTROINTESTINAL TRACT: There are postoperative changes consistent with the provided history of prior gastric bypass. There is mild colonic wall thickening, in particular of the transverse colon and to lesser extent of the ascending, descending and sigmoid segments. There is mild paracolic fat stranding, most pronounced adjacent to the transverse colon. No obstruction, free intraperitoneal air or abscess is seen. No diverticulosis or diverticulitis is seen. The vermiform appendix appears normal. ABDOMINAL WALL: There is a small fat-containing umbilical hernia. LYMPH NODES: Normal. VASCULAR: Unremarkable. PELVIC VISCERA: The uterus and adnexa are unremarkable. OSSEOUS STRUCTURES: There is a mild T11 anterior wedge compression fracture. At T11-T12, there is moderate degenerative disc disease, with vacuum phenomenon. At L4-L5, there is marked degenerative disc disease, with vacuum phenomenon. There is multi-level mild thoracic spondylosis. No acute or aggressive osseous finding is noted. CT/CT abdomen pelvis wo IV con IMPRESSION: 1. Mild colonic wall thickening is seen, and there is mild fat stranding adjacent to the transverse colon. No obstruction, free intraperitoneal air or abscess is seen. These findings raise the possibility of colitis (including C. difficile) and inflammatory bowel disease. Please correlate clinically. 2. There is hepatomegaly. 3. There is a small fat-containing umbilical hernia. 4. There are degenerative changes of the spine, without acute or aggressive osseous lesion noted. Fleischner guidelines were followed.
[2023-08-22 12:39] VITALS: BP 116/75; PULSE 103; RESP 16; TEMP 36.6; O2SAT 95; BMI 32.1
--- NOTE | 2023-08-22 12:41 | ED_ITS ---
HPI - Abdominal Pain General Chief Complaint: Nausea/Vomiting/Diarrhea Stated Complaint: Stomach Pain Diarrhea x 5 Days Time Seen by Provider: 08/22/23 16:19 Source: patient Mode of arrival: ambulatory Limitations: no limitations History of Present Illness HPI narrative: Patient comes to the emergency room complaining of diarrhea for 5 days. Patient states that 1 year ago, patient ate lettuce, then had diffuse abdominal cramping and diarrhea for a week. Patient states that she avoided let us for 1 year. One week ago she tried eating lettuce again and then started having diarrhea again. Patient denies any fever chills, no UTI symptoms, no nausea or vomiting. Related Data Previous Rx's Medication Instructions Recorded naproxen 500 mg tablet 500 mg PO BID 90 days #180 tabs 10/06/21 ferrous sulfate 325 mg (65 mg 325 mg PO DAILY 90 days #90 tabs 12/04/21 iron) tablet nirmatrelvir 300 mg (150 mg 3 ea PO PER PKG DIR 5 days #30 ea 08/12/22 x2)-ritonavir 100 mg tablet,dose pack (Paxlovid) diphenoxylate-atropine 2.5 1 tab PO BID PRN diarrhea #7 tabs 08/22/23 mg-0.025 mg tablet (Lomotil) levofloxacin 500 mg tablet 500 mg PO DAILY #9 tabs 08/22/23 metronidazole 500 mg tablet 500 mg PO BID #19 tabs 08/22/23 Allergies Allergy/AdvReac Type Severity Reaction Status Date / Time morphine [MORPHINE] AdvReac Intermediate BAD Verified 07/16/22 17:16 REACTION , respiratory, SOB Review of Systems Review of Systems ?Constitutional : No Weight loss, No Fever, No Chills, No Night Sweats, No Fatigue, No Malaise ENT/Mouth : No Hearing loss, No Ear Pain, No Nasal Congestion, No Sinus Pain, No Hoarseness, No sore throat, No Rhinorrhea, No Swallowing Difficulty Eyes: No Eye Pain, No Swelling, No Redness, No Foreign Body, No Discharge, No Vision Changes Cardiovascular : No Chest Pain, No SOB, No Dyspnea on Exertion, No Orthopnea, No Edema, No Palpitations Respiratory : No Cough, No Sputum, No Wheezing, No Smoke Exposure, No Dyspnea Gastrointestinal : No Nausea, No Vomiting,? complaining of Diarrhea, No Constipation,? complaining of abdominal cramping, no hematochezia or melena Genitourinary : no irregular bleeding, No Dysuria, No Urinary Frequency, No Hematuria, No Urinary Incontinence, No Urgency, No Flank Pain, No Urinary Flow Changes, No Hesitancy Musculoskeletal : No joint pain, No Myalgias, No Joint Swelling Skin : No Skin Lesions, No rash Neuro : No Weakness, No Numbness, No Paresthesias, No Loss of Consciousness, No Dizziness, No Headache Psych : No Anxiety/Panic, No Depression, No SI/HI/AH/VH, No Social Issues, Heme/Lymph: No Bruising, No Bleeding,No Lymphadenopathy Endocrine : No Polyuria, No Polydipsia, No Temperature Intolerance PMFSH Past Medical History Medical History Moderate recurrent major depression Physical exam Left median nerve neuropathy Onychomycosis Normocytic anemia Abdominal pain Left knee pain Screening for cervical cancer Arm numbness Left shoulder pain Obese Surgical History Hx laparoscopic cholecystectomy Hx of tubal ligation H/O gastric bypass Family History Family History Mother No problems noted. Father No problems noted. Social History Social History Housing: House Alcohol intake: current Alcohol intake frequency: holidays/special occasions only Alcohol type: beer Patient Tobacco Use Status: Never used Tobacco Smoked in Last 30 Days: No e-Cigarette/Vaping Use: Never Used Second Hand Smoke Exposure: No Use of substances other than those prescribed or required for medical reasons: No Advance Directives: No Advance Directives Information Provided: No Advance Directives Date on File: 01/26/21 Patient : No service: No Current occupational status: employed Current occupational exposures/hazards: No Cognitive needs: No Hearing needs: No Vision needs: No Physical Exam ED Vital Signs: Vital Signs - 24 hr 08/22/23 12:39 08/22/23 15:53 08/22/23 19:36 Temperature 97.9 F 97.9 F 97.5 F Pulse Rate 103 H 82 71 Respiratory Rate 16 16 16 Blood Pressure 116/75 123/81 128/85 Pulse Oximetry 95 97 99 Oxygen Delivery Method Room Air Room Air Room Air BMI result Body Mass Index 32.1 Const Other: Appearance: Alert. Oriented X3. No acute distress. Eyes: Pupils equal, round and reactive to light. ENT: Pharynx normal. Neck: Normal inspection. Neck supple. No lymph nodes noted. No crepitus CVS: Normal heart rate and rhythm. Pulses normal. Normal S1 and S2 Respiratory: No respiratory distress. Breath sounds normal. No Wheezing. No rales Abdomen: Soft and nontender. No rigidity. No distention. Skin: Skin warm and dry. Normal skin color. Normal skin turgor. Extremities: No lower extremity edema. No Lacerations. No Rash Neuro: Oriented X 3. No motor deficit. No sensory deficit. Moving all extremities. No slurred speech. CN 2 through 12 grossly intact Psych: calm, cooperative, normal affect Course Course Course Narrative: This is an RME: Additional HPI, ROS, PE not included below will be deferred to primary provider. Patient is a 52-year-old female who presents emergency department for evaluation of abdominal pain localized to the epigastrum, nausea,vomiting, and diarrhea. Symptom onset was 5 days ago. Plan: Labs, viral testing Medical Decision Making Medical Decision Making [facility] Narrative: - my interpretation of labs: Normal white blood cell count, hemoglobin 10.2, chronic and at baseline. No significant electrolyte abnormalities. Urinalysis negative for UTI. serology negative for COVID and influenza - patient receiving IV fluids. Patient receiving 1 dose of p.o. Lomotil - patient complaining of left upper quadrant pain. History of gastric bypass 20 years ago. We will go ahead and order a CT scan - my interpretation of CT scan: No obvious abnormality. - Radiology CT scan interpretation: Mild colonic wall thickening, likely colitis versus inflammatory disease. C diff toxin gene negative - patient given p.o. antibiotics and will continue the antibiotic regimen at home - discussed the plan with the patient, patient agreeable Differential Diagnosis Differential Diagnoses: The differential diagnosis associated with the presentation includes ( Colitis, C diff, viral syndrome) Admission/Observation Consideration of admission/observation: Escalation of care including admission/observation considered ( given patient's history and length of symptoms, admission was considered.) Lab Data [facility] Lab Attestation statement: I reviewed the patient's lab results. 08/22/23 12:51 01/26/24 12:51 Labs: Lab Results 08/22/23 08/22/23 08/22/23 Range/Units 12:51 16:02 20:35 WBC 5.0 (4.8-10.8) X10*3/uL RBC 4.15 L (4.20-5.50) X10*6/uL Hgb 10.2 L (12.0-16.0) g/dl Hct 33.7 L (37.0-47.0) % MCV 81.2 (80.0-98.0) fL MCH 24.6 L (27.0-33.0) pg MCHC 30.3 L (31.0-35.0) g/dl RDW 15.9 (11.0-16.0) % Plt Count 264 (160-400) X10*3/uL MPV 10.0 (9.4-12.3) fL Immature Gran % (Auto) 0.2 (0.0-0.4) % Neut % (Auto) 71.7 (45-73) % Lymph % (Auto) 19.6 L (20-40) % [place] % (Auto) 7.1 (2-11) % Eos % (Auto) 0.8 (0-4) % Baso % (Auto) 0.6 (0-2) % Lymph # (Auto) 1.0 L (1.2-4.9) X10*3/uL [place] # (Auto) 0.4 (0.1-1.2) X10*3/uL Eos # (Auto) 0.0 (0.0-0.4) X10*3/uL Baso # (Auto) 0.0 (0.0-0.2) X10*3/uL Abs Immat Gran (auto) 0.01 (0.00-0.03) X10*3/uL Absolute Neuts (auto) 3.6 (2.0-8.3) x10*3/uL Absolute Nucleated RBC 0.000 (0.0-0.012) X10*3/uL Nucleated RBC % (auto) 0.0 (0.0-0.2) /100WBC Sodium 140 (135-145) mmol/L Potassium 3.6 (3.3-5.1) mmol/L Chloride 108 (96-108) mmol/L Carbon Dioxide 23 (22-29) mmol/L Anion Gap 13 (12-20) BUN 7 L (9-16) mg/dL Creatinine 0.68 (0.5-1.4) mg/dL Estim Creat Clear Calc 117.0 Estimated GFR > 60 Random Glucose 129 H (60-115) mg/dL Calcium 8.6 (8.4-10.2) mg/dL Magnesium 2.1 (1.6-2.6) mg/dL Total Bilirubin 0.3 (0.0-1.0) mg/dL AST 14 (5-31) U/L ALT 9 (0-31) U/L Alkaline Phosphatase 78 (39-117) U/L Total Protein 6.8 (6.5-8.0) g/dL Albumin 3.7 (3.5-5.0) g/dL Lipase 19 (8-78) U/L Urine Color Yellow Urine Appearance Clear Urine pH 6.0 (5.0-9.0) Ur Specific [place] 1.025 (1.005-1.025) Urine Protein Negative (Neg-Trace) mg/dL Urine Glucose (UA) Negative (Negative) mg/dL Urine Ketones Trace (Negative) mg/dL Urine Blood Negative (Negative) Urine Nitrite Negative (Negative) Ur Leukocyte Esterase Negative (Negative) C. difficile Tox B Gene NEGATIVE (Negative) COVID-19 (JOHNATHAN) Negative (Negative) COVID-19 Clin Com See Note Influenza Type A (BRET) Negative (Negative) Influenza Type B (BRET) Negative (Negative) Influenza A & B Note See Note Independent Interpretation I performed an independent interpretation of an: CT Scan Radiology Impression Discussion of test interpretation with radiology: I have reviewed the radiologist's reading. Radiologist Impression: 1. Mild colonic wall thickening is seen, and there is mild fat stranding adjacent to the transverse colon. No obstruction, free intraperitoneal air or abscess is seen. These findings raise the possibility of colitis (including C. difficile) and inflammatory bowel disease. Please correlate clinically. 2. There is hepatomegaly. 3. There is a small fat-containing umbilical hernia. 4. There are degenerative changes of the spine, without acute or aggressive osseous lesion noted. Fleischner guidelines were followed. Medications Administered Discontinued Medications Generic Name Dose Route Start Last Admin Trade Name Freq PRN Reason Stop Dose Admin Acetaminophen 975 mg 08/22/23 20:32 08/22/23 20:42 Acetaminophen 325 Mg Tablet PO 08/22/23 20:33 975 mg ONCE ONE Administration Belladonna Alkaloids/Phenobarbital 10 ml 08/22/23 19:02 08/22/23 20:41 Phenobarb/Hyoscy/Atropine/Scop 10 Ml Elixir PO 08/22/23 19:03 10 ml ONCE ONE Administration Diphenoxylate HCl/Atropine 2 tab 08/22/23 16:30 08/22/23 17:15 Diphenoxylate/Atrop 2.5/0.025 Tablet PO 08/22/23 16:31 2 tab ONCE ONE Administration Sodium Chloride 1,000 mls @ 999 mls/hr 08/22/23 16:21 08/22/23 19:00 Ns IVCONT 08/22/23 17:21 Infused .Q1H1M ONE Infusion Ondansetron HCl 4 mg 08/22/23 16:21 08/22/23 17:15 Ondansetron Hcl 4 Mg/2 Ml Vial IVPUSH 08/22/23 16:22 4 mg ONCE ONE Administration Critical Care Time Critical Care Time Critical Care Time: Yes Total Critical Care Time: 60 Attestation: I have personally provided critical care time. Time includes review of lab data, radiology results, discussion with consultants, and monitoring for potential decompensation. Intervention performed as documented. Discharge Plan Discharge Clinical Impression: Colitis Patient Disposition: Home, Self-Care Instructions: Colitis (ED) Additional Instructions: Please follow-up with your primary care physician tomorrow. If you have any worsening or new symptoms, please return to the emergency room or call 911 Prescriptions: New levofloxacin 500 mg tablet 500 mg PO DAILY Qty: 9 0RF metronidazole 500 mg tablet 500 mg PO BID Qty: 19 0RF diphenoxylate-atropine [Lomotil] 2.5-0.025 mg tablet 1 tab PO BID PRN (Reason: diarrhea) Qty: 7 0RF No Action naproxen 500 mg tablet 500 mg PO BID 90 Days Qty: 180 1RF ferrous sulfate 325 mg (65 mg iron) tablet 325 mg PO DAILY 90 Days Qty: 90 1RF Paxlovid 300 mg (150 mg x 2)-100 mg tablets,dose pack 3 ea PO PER PKG DIR 5 Days Qty: 30 0RF
[2023-08-22 12:55] LABS: MANUAL DIFF FLAG NO
[2023-08-22 12:58] LABS: Basophils Percent Auto 0.6 % (0-2); Eosinophils Percent Auto 0.8 % (0-4); Hematocrit 33.7 % (37.0-47.0); Hemoglobin 10.2 g/dl (12.0-16.0); Imm Gran Abs Auto 0.01 X10*3/uL (0.00-0.03); Imm Gran Pct Auto 0.2 % (0.0-0.4); Lymphocytes Percent Auto 19.6 % (20-40); Mean Corpuscular HGB Conc 30.3 g/dl (31.0-35.0); Mean Corpuscular Hemoglobin 24.6 pg (27.0-33.0); Mean Corpuscular Volume 81.2 fL (80.0-98.0); Monocytes Absolute Auto 0.4 X10*3/uL (0.1-1.2); Monocytes Percent Auto 7.1 % (2-11); Neutrophils Absolute Auto 3.6 x10*3/uL (2.0-8.3); Neutrophils Percent Auto 71.7 % (45-73); Platelet Count 264 X10*3/uL (160-400); Red Blood Count 4.15 X10*6/uL (4.20-5.50); Red Cell Distribution Width 15.9 % (11.0-16.0)
[2023-08-22 13:17] LABS: COVID-19 Test Negative (Negative); IDNOW Serial# 08D9AD1C; IDNOW Serial# 58CA691E; Influenza A Negative (Negative); Influenza B2 Negative (Negative)
[2023-08-22 13:25] LABS: Alanine Aminotransferase 9 U/L (0-31); Albumin Level 3.7 g/dL (3.5-5.0); Alkaline Phosphatase 78 U/L (39-117); Anion Gap 13 (12-20); Aspartate Amino Transferase 14 U/L (5-31); Bilirubin Total 0.3 mg/dL (0.0-1.0); Blood Urea Nitrogen 7 mg/dL (9-16); Calcium 8.6 mg/dL (8.4-10.2); Carbon Dioxide 23 mmol/L (22-29); Chloride 108 mmol/L (96-108); Estimated Glomerular Filt Rate > 60; Glucose Random 129 mg/dL (60-115); Lipase 19 U/L (8-78); Magnesium 2.1 mg/dL (1.6-2.6); Potassium 3.6 mmol/L (3.3-5.1); Sodium 140 mmol/L (135-145); Total Protein 6.8 g/dL (6.5-8.0)
[2023-08-22 15:53] VITALS: BP 123/81; PULSE 82; RESP 16; TEMP 36.6; O2SAT 97
--- NOTE | 2023-08-22 16:03 | MHC.EDTECH ---
This pct assumed care of p[t at 1500 ,vitals taken ,and urine sample collected and sent to lab .
--- NOTE | 2023-08-22 16:10 | PC.NURSE ---
a&ox4. vss and up to date. pt presents to the ED w/ epigastric abd pain and diarrhea x 5 days. pt verbalizes feeling chills - denies fever/v/n. pt also verbalizing decreased PO intake x 5 days. abd tender upon palpation. no sob/wob noted. respirations even and unlabored. tech obtained urine sample. resting comfortably waiting to be seen by ED provider at this time. call arreola placed within reach.
[2023-08-22 16:17] LABS: Appearance Urine Clear; Color Urine Yellow; Glucose Urine UA Negative (Negative); Leukocyte Esterase Urine Negative (Negative); Nitrite Urine Negative (Negative); Specific Gravity - Urine 1.025 (1.005-1.025); Urine Blood Negative (Negative); Urine Ketones Trace mg/dL (Negative); Urine Protein Negative (Neg-Trace)
[2023-08-22] MEDS: Diphenoxylate/Atrop 2.5/0.025 TABLET 2 TAB PO (17:15)
[2023-08-22] MEDS: 0.9 % Sodium Chloride 1,000 ML 999 ML IVCONT (17:15)
[2023-08-22] MEDS: ondansetron HCL 4 MG/2 ML VIAL IVPUSH (17:15)
--- NOTE | 2023-08-22 17:18 | PC.NURSE ---
22gIV placed in the left hand - IVF/medication administered per provider order.
[2023-08-22 19:36] VITALS: BP 128/85; PULSE 71; RESP 16; TEMP 36.4; O2SAT 99
[2023-08-22] MEDS: PHENobarb/Hyoscy/Atropine/Scop 10 ML ELIXIR PO (20:41)
[2023-08-22] MEDS: Acetaminophen 325 MG TABLET 975 MG PO (20:42)
[2023-08-22 21:27] LABS: CDiff Gene PCR NEGATIVE (Negative)
[2023-08-22 22:13] VITALS: BP 113/58; PULSE 74; RESP 18; TEMP 36.5; O2SAT 97
[2023-08-22] MEDS: metroNIDAZOLE 500 MG TABLET PO (22:16)
[2023-08-22] MEDS: levoFLOXacin 500 MG TABLET PO (22:16)
== END 2023-08-22 22:24 | disposition home or self-care (01) ==
PROVIDERS: Nurse Practitioner Family; Emergency Provider Emergency Medicine; PCP Internal Medicine
DX: K52.9 Noninfective gastroenteritis and colitis, unspecified (principal); Z11.52 Encounter for screening for COVID-19
CPT/HCPCS: 74176; 80053; 81003; 83690; 83735; 85025; 87493; 87502; 87635; 96361; 96374; 99284; 99285; J2405

== ENCOUNTER 2023-09-04 15:39 | Outpatient (AMB) | payer OTHER, SELFPAY ==
[2023-09-04 15:55] VITALS: BP 120/70; BMI 32.4
--- NOTE | 2023-09-04 15:55 | MHC.PC.OV ---
Vital Signs 09/04/23 15:55 Height 5 ft 8 in Weight 213 lb BMI 32.4 BP 120/70 Blood Pressure Location Lt brachial Position Sitting Intake Visit Reasons: [facility] follow up 08/22 abdominal pain Intake Note: Patient [facility] follow up 08/21 abdominal pain Hospital Insurance Clerk Required: No Accompanied by: Self / Same As Patient Allergies morphine [MORPHINE] Adverse Reaction (Intermediate, Verified 09/04/23 16:11) BAD REACTION , respiratory, SOB Medication List - Last Reconciled 09/04/23 by Gloria Becker MD naproxen 500 mg PO BID 90 days Tobacco use date assessed: 09/04/23 Dental Screening Dental Screen Date: 09/04/23 Did you have a dental visit in the last 12 months?: No Did you have a dental problem in the last 6 months where you did not have access to dental care?: No Was dental information given to patient?: Patient has dentist HPI HPI Comments History of Present Illness Details This is a 52-year-old female with moderate recurrent major depression that comes today as a hospital discharge follow-up with discharge date 08/22/2023 due to abdominal pain associated with diarrhea after eating lettuce. She has had this problem in the past. At the hospital CT scan of abdomen and pelvis was done showing colitis and small umbilical hernia containing fat. Diarrhea resolved yesterday as well as abdominal pain. No fever, nausea or vomiting. Her depression has been in remission. She also complains of bilateral hip pain that started to happen recently aggravated by walking. No previous trauma to the area. [facility] Medical History (Updated 09/06/23 @ 10:14 by Gloria Becker MD) Moderate recurrent major depression Physical exam Left median nerve neuropathy Onychomycosis Normocytic anemia Abdominal pain Left knee pain Screening for cervical cancer Arm numbness Left shoulder pain Obese Surgical History Hx laparoscopic cholecystectomy Hx of tubal ligation H/O gastric bypass Family History Mother No problems noted. Father No problems noted. Social History Housing: House Alcohol intake: current Alcohol intake frequency: holidays/special occasions only Alcohol type: beer Patient Tobacco Use Status: Never used Tobacco e-Cigarette/Vaping Use: Never Used Second Hand Smoke Exposure: No Advance Directives Date on File: 01/26/21 service: No Current occupational status: employed Current occupational exposures/hazards: No Cognitive needs: No Hearing needs: No Vision needs: No Questionnaire PHQ-9 Over the last 2 weeks, how often have you been bothered by any of the following problems? 1. Little interest or pleasure in doing things: not at all 2. Feeling down, depressed, or hopeless: several days 3. Trouble falling or staying asleep, or sleeping too much: nearly every day 4. Feeling tired or having little energy: several days 5. Poor appetite or overeating: several days 6. Feeling bad about yourself - or that you are a failure or have let yourself or your family down: not at all 7. Trouble concentrating on things, such as reading the newspaper or watching television: not at all 8. Moving or speaking so slowly that other people could have noticed. Or the opposite - being so fidgety or restless that you have been moving around a lot more than usual: several days 9. Thoughts that you would be better off or of hurting yourself in some way: not at all Total score: 7 Source: Developed by Drs. Percy Quzeada, Rhianna Overton, German Blackwell and colleagues, with an educational dhara from [employer]. Thrive Questionnaire Date Thrive assessed: 09/04/23 I am a: Patient What is your living situation today?: I have a steady place to live Within the past 12 months, did the food you bought not last and you didn't have the money to get more?: Never true Within the past 12 months, did you worry whether your food would run out before you got money to buy more?: Never true Do you have trouble paying for medicines?: No Do you have trouble getting transportation to medical appointments?: No Do you have trouble paying your heating and electricity bill?: No Do you have trouble taking care of your child, family member or friend?: No Do you have trouble with day-to-day activities such as bathing, preparing meals, shopping, managing finances, etc.?: No Are you currently unemployed and looking for a job?: No Are you interested in more education?: No Please select the resources that you would like help with: None Currently or been in a relationship where the following occur: no concerns reported THRIVE Score: 0 AUDIT C Alcohol Use Questionnaire (AUDIT-C) 1. How often do you have a drink containing alcohol?: 2-4 times a month 2. How many drinks containing alcohol do you have on a typical day when you are drinking?: 3 or 4 3. How often do you have six or more drinks on one occasion?: Never Total Score: 3 Score Reviewed/Action Taken: Yes TERE-7 AMB Questionnaire TERE-7 Date TERE - 7 assessed: 09/04/23 Feeling nervous, anxious, or on edge: 1 = Several days Not being able to stop or control worryin = Not at all Worrying too much about different things: 1 = Several days Trouble relaxin = Not at all Being so restless that it is hard to sit still: 0 = Not at all Becoming easily annoyed or irritable: 0 = Not at all Feeling afraid as if something awful might happen: 1 = Several days Total TERE-7 score (0-4 normal; 5-9 mild; 10-14 moderate; 15-21 severe): 3 Source: Developed by Drs. Percy Quezada, Rhianna Overton, German Blackwell and colleagues, with an educational dhara from [employer]. TERE-7 Assessment Billing TERE-7 Assessment Tool: TERE-7 Assessment 02057 Review of Systems Const All systems reviewed & are unremarkable except as noted in HPI and below Eyes Reports no additional complaints, Denies change in vision and Denies other visual disturbances Card Denies chest pain at rest, Denies chest pain with activity, Denies edema, Denies irregular heart rhythm, Denies claudication, Denies dyspnea, Denies dyspnea on exertion, Denies orthopnea, Denies paroxysmal nocturnal dyspnea and Denies slow heart rate Resp Denies cough, Denies dyspnea and Denies dyspnea on exertion GI Denies abdominal pain, Denies change in bowel habits, Denies excessive flatus, Denies nausea and Denies vomiting Denies urinary incontinence, Denies urinary hesitancy and Denies urinary urgency Musc Denies abnormal gait, Denies atrophy, Denies deformity and Denies limited range of motion Skin/Breast Denies bleeding lesions, Denies changing lesions and Denies rash Neuro Denies abnormal gait, Denies behavioral changes and Denies lack of coordination Psych Denies behavioral changes Physical exam (Primary Care) Vital Signs: Last Vital Signs BP 120/70 09/04/23 15:55 BMI result Body Mass Index 32.4 Tobacco/Smoking Status: Tobacco use Status Tobacco use date assessed 09/04/23 09/04/23 16:03 Patient Tobacco Use Status Never used Tobacco 09/04/23 16:03 e-Cigarette/Vaping Use Never Used 09/04/23 16:03 PHQ-9: PHQ-9 Score PHQ-9: Total score 7 09/04/23 16:20 Thrive Assessment: Date of Thrive Assessment Date Thrive assessed 09/04/23 09/04/23 16:03 Currently or been in a relationship where the following occur: no concerns reported Eyes General: appearance normal, both eyes and all related structures Eyelids: Yes eyelids normal Conjunctivae: conjunctivae normal Neck Neck: Yes normal visual inspection and Yes supple Resp Effort & Inspection: normal respiratory effort Auscultation: clear to auscultation bilaterally Cardio Jugular venous distension: no JVD Rate: regular rate Rhythm: regular rhythm Heart sounds: S1 normal heart sound present and S2 normal heart sound present Extrem General: Yes full ROM Assessment and Plan Assessment & Plan (1) Hospital discharge follow-up: Code(s): Z09 - Encounter for follow-up examination after completed treatment for conditions other than malignant neoplasm Plan: Discharge date 08/22/2023 due to abdominal pain. CT scan of abdomen and pelvis done showing colitis. Feels markedly improved. (2) Colitis: Code(s): K52.9 - Noninfective gastroenteritis and colitis, unspecified Plan: Feels markedly improved and diarrhea stopped yesterday. (3) Right hip pain: Code(s): M25.551 - Pain in right hip Plan: X-ray ordered. (4) Left hip pain: Code(s): M25.552 - Pain in left hip Plan: X-ray ordered. (5) Moderate recurrent major depression: Code(s): F33.1 - Major depressive disorder, recurrent, moderate Plan: In remission. Orders: Orders IRON PROFILE 09/04/23 D64.9 - Anemia, unspecified Vitamin D 25-OH Total 02/08/24 E55.9 - Vitamin D deficiency, unspecified Vitamin B12 and Folate 09/04/23 E53.8 - Deficiency of other specified B group vitamins XR hip RT min 2V 09/04/23 M25.551 - Pain in right hip Complete Blood Count Auto Diff 09/04/23 D64.9 - Anemia, unspecified XR hip LT min 2V 09/04/23 M25.552 - Pain in left hip Medications: New cholestyramine (with sugar) 4 gram administer w/meal; avoid other meds within 1hr before or 4-6hr after dose 4 grams PO BID 30 days 378 grams 1RF Coding Level of Care Code TCM Mod MDM <= 7 Days Diagnoses Hospital discharge follow-up Z09 Colitis K52.9 Right hip pain M25.551 Left hip pain M25.552 Moderate recurrent major depression F33.1 Additional Codes TERE-7 Assessment Billing - TERE-7 Assessment Tool: TERE-7 Assessment 13971 ([id number]) Time Spent (min) 23
== END 2023-09-04 16:26 | disposition home or self-care (01) ==
PROVIDERS: PCP Internal Medicine; Visit Provider Internal Medicine
DX: K52.9 Noninfective gastroenteritis and colitis, unspecified (principal); F33.1 Major depressive disorder, recurrent, moderate; Z09 Encounter for follow-up examination after completed treatment for conditions other than malignant neoplasm; M25.551 Pain in right hip; M25.552 Pain in left hip
CPT/HCPCS: 99214

== ENCOUNTER 2023-12-02 11:03 | Outpatient (REF) | payer OTHER, SELFPAY ==
--- NOTE | ~2023-12-02 | XR_ITS ---
EXAMINATION: XR HIP, RIGHT CLINICAL INFORMATION: Pain. COMPARISON: None available. TECHNIQUE: AP and frog-leg lateral views of the right hip are submitted. FINDINGS: No fracture. Alignment is anatomic. Hip joint space is maintained. Soft tissues are unremarkable. XR/XR hip RT min 2V IMPRESSION: Normal right hip. EXAMINATION: XR HIP, LEFT CLINICAL INFORMATION: Pain. COMPARISON: None available. TECHNIQUE: AP and frog-leg lateral views of the left hip are submitted. FINDINGS: No fracture. Alignment is anatomic. Hip joint space is maintained. Soft tissues are unremarkable. IMPRESSION: Normal left hip.
--- NOTE | ~2023-12-02 | XR_ITS ---
EXAMINATION: XR HIP, RIGHT CLINICAL INFORMATION: Pain. COMPARISON: None available. TECHNIQUE: AP and frog-leg lateral views of the right hip are submitted. FINDINGS: No fracture. Alignment is anatomic. Hip joint space is maintained. Soft tissues are unremarkable. XR/XR hip LT min 2V IMPRESSION: Normal right hip. EXAMINATION: XR HIP, LEFT CLINICAL INFORMATION: Pain. COMPARISON: None available. TECHNIQUE: AP and frog-leg lateral views of the left hip are submitted. FINDINGS: No fracture. Alignment is anatomic. Hip joint space is maintained. Soft tissues are unremarkable. IMPRESSION: Normal left hip.
[2023-12-02 11:14] LABS: MANUAL DIFF FLAG NO
[2023-12-02 12:19] LABS: Basophils Percent Auto 0.9 % (0-2); Eosinophils Absolute Auto 0.1 X10*3/uL (0.0-0.4); Eosinophils Percent Auto 1.4 % (0-4); Hematocrit 36.7 % (37.0-47.0); Hemoglobin 11.2 g/dl (12.0-16.0); Imm Gran Abs Auto 0.01 X10*3/uL (0.00-0.03); Imm Gran Pct Auto 0.2 % (0.0-0.4); Lymphocytes Absolute Auto 1.5 X10*3/uL (1.2-4.9); Lymphocytes Percent Auto 34.5 % (20-40); Mean Corpuscular HGB Conc 30.5 g/dl (31.0-35.0); Mean Corpuscular Volume 81.9 fL (80.0-98.0); Mean Platelet Volume 10.4 fL (9.4-12.3); Monocytes Absolute Auto 0.2 X10*3/uL (0.1-1.2); Monocytes Percent Auto 4.3 % (2-11); Neutrophils Absolute Auto 2.6 x10*3/uL (2.0-8.3); Neutrophils Percent Auto 58.7 % (45-73); Platelet Count 342 X10*3/uL (160-400); Red Blood Count 4.48 X10*6/uL (4.20-5.50); Red Cell Distribution Width 17.1 % (11.0-16.0); White Blood Count 4.4 X10*3/uL (4.8-10.8)
[2023-12-02 12:50] LABS: Iron 34 mcg/dL (30-160); Percent Iron Saturation 8 % (15-50); Total Iron Binding Capacity 431 mcg/dL (228-428); Unsaturated Iron Binding 397 ug/dL
[2023-12-02 13:09] LABS: Vitamin D 25-OH Total 6.9 ng/mL (>30)
[2023-12-02 13:17] LABS: Folate 7.9 ng/mL (> or = 4.0); Vitamin B12 647 pg/mL (200-900)
== END 2023-12-02 11:04 | disposition home or self-care (01) ==
LOC: HO.XRAY 11:03
PROVIDERS: PCP Internal Medicine; Visit Provider Internal Medicine
DX: D64.9 Anemia, unspecified (principal); M25.551 Pain in right hip; M25.552 Pain in left hip; E55.9 Vitamin D deficiency, unspecified; E53.8 Deficiency of other specified B group vitamins
CPT/HCPCS: 36415; 73502; 82306; 82607; 82746; 83540; 85025

== ENCOUNTER 2023-12-08 15:29 | Outpatient (AMB) | payer OTHER, SELFPAY ==
[2023-12-08 15:27] VITALS: BP 120/72; PULSE 74; TEMP 36.6; O2SAT 98; BMI 33.1
--- NOTE | 2023-12-08 15:27 | MHC.OFFWIV ---
Intake Vital Signs 12/08/23 15:27 Height 5 ft 8 in Weight 218 lb BMI 33.1 BP 120/72 Blood Pressure Location Rt brachial Position Sitting Pulse 74 Pulse Source Pulse Oximeter Temp 97.8 F Temp Source Oral Pulse Oximetry (%) 98 Intake Visit Reasons: EP hip pain 2months Intake Note: pt is here for concern of hip pain for 2 months Patient Tobacco Use Status: Never used Tobacco Allergies morphine [MORPHINE] Adverse Reaction (Intermediate, Verified 12/08/23 15:52) BAD REACTION , respiratory, SOB Medication List - Last Reconciled 12/08/23 by Frank Robertson MD cholecalciferol (vitamin D3) 50 mcg PO DAILY 90 days Do you need a note to return to daycare/school/sports/work: No HPI EP hip pain 2months HPI Details 53 yr old female presents to the office for a sick visit. Complaining of hip pain for the past two months. Sx started after a COVID infection. 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 In addition she has pain in the knees and lower back. She called her PCP who ordered xrays and blood work. She is unaware of the results [facility] Medical History Moderate recurrent major depression Physical exam Left median nerve neuropathy Onychomycosis Normocytic anemia Abdominal pain Left knee pain Screening for cervical cancer Arm numbness Left shoulder pain Obese Surgical History Hx laparoscopic cholecystectomy Hx of tubal ligation H/O gastric bypass Family History Mother No problems noted. Father No problems noted. Social History Housing: House Alcohol intake: current Alcohol intake frequency: holidays/special occasions only Alcohol type: beer Patient Tobacco Use Status: Never used Tobacco e-Cigarette/Vaping Use: Never Used Second Hand Smoke Exposure: No Advance Directives Date on File: 01/26/21 service: No Current occupational status: employed Current occupational exposures/hazards: No Cognitive needs: No Hearing needs: No Vision needs: No Physical Exam Vital Signs: Last Vital Signs Temp 97.8 F 12/08/23 15:27 Pulse 74 12/08/23 15:27 BP 120/72 12/08/23 15:27 Pulse Ox 98 12/08/23 15:27 BMI result Body Mass Index 33.1 Const General: cooperative and healthy appearing Nutritional Appearance: well nourished Orientation/consciousness: patient oriented x3 Limitations: no limitations HEENT Head: Yes normal to inspection Eyes General: appearance normal, both eyes and all related structures Neck Neck: Yes normal visual inspection Chest Chest palpation & inspection: normal palpation of entire chest wall Resp Effort & Inspection: normal respiratory effort Neuro General: patient oriented x3 Assessment & Plan Assessment & Plan (1) Right hip pain: Code(s): M25.551 - Pain in right hip Plan: X ray has not been officially read. Meloxicam and cyclobenzaprine called in. BW discussed with patient. Coding Level of Care Code Est Pt Level 3 (85790) Diagnoses Right hip pain M25.551
== END 2023-12-08 15:59 | disposition home or self-care (01) ==
PROVIDERS: PCP Internal Medicine; Visit Provider Internal Medicine
DX: M25.551 Pain in right hip (principal)
CPT/HCPCS: 99213

== ENCOUNTER 2024-03-31 12:23 | Outpatient (AMB) | payer OTHER, SELFPAY ==
[2024-03-31 12:33] VITALS: BP 114/70; PULSE 80; O2SAT 97; BMI 31.3
--- NOTE | 2024-03-31 12:33 | MHC.PC.OV ---
Vital Signs 03/31/24 12:33 Height 5 ft 8 in Weight 206 lb BMI 31.3 BP 114/70 Blood Pressure Location Lt brachial Position Sitting Pulse 80 Pulse Source Pulse Oximeter Pulse Oximetry (%) 97 Oxygen Delivery Method Room Air Intake Visit Reasons: [employer] Required: No Accompanied by: Self / Same As Patient Allergies morphine [MORPHINE] Adverse Reaction (Intermediate, Verified 03/31/24 12:48) BAD REACTION , respiratory, SOB Medication List - Last Reconciled 03/31/24 by Gloria Becker MD cholecalciferol (vitamin D3) 50 mcg PO DAILY 90 days Tobacco use date assessed: 09/04/23 Dental Screening Dental Screen Date: 09/04/23 Did you have a dental visit in the last 12 months?: No Did you have a dental problem in the last 6 months where you did not have access to dental care?: No Was dental information given to patient?: Patient has dentist HPI HPI Comments History of Present Illness Details This is a 53-year-old female that comes for physical exam. Last mammogram was 2020 and I will order another mammogram. Last Pap smear was over 4 years ago and will be referred to OBGYN. Has never had a colonoscopy and will be refer through open access. Complains chest pain pressure like in quality in the middle of the chest that started in August of this year. Also has diffuse joint pain more prominent in both hips and lumbar spine. Will be referred to rheumatology and to pain management. [facility] Medical History (Updated 03/31/24 @ 13:00 by Gloria Becker MD) Moderate recurrent major depression Physical exam Left median nerve neuropathy Onychomycosis Normocytic anemia Abdominal pain Left knee pain Screening for cervical cancer Arm numbness Left shoulder pain Obese Surgical History Hx laparoscopic cholecystectomy Hx of tubal ligation H/O gastric bypass Family History Mother No problems noted. Father No problems noted. Social History Housing: House Alcohol intake: current Alcohol intake frequency: holidays/special occasions only Alcohol type: beer Patient Tobacco Use Status: Never used Tobacco e-Cigarette/Vaping Use: Never Used Second Hand Smoke Exposure: No Advance Directives Date on File: 01/26/21 service: No Current occupational status: employed Current occupational exposures/hazards: No Cognitive needs: No Hearing needs: No Vision needs: No Questionnaire PHQ-9 Over the last 2 weeks, how often have you been bothered by any of the following problems? 1. Little interest or pleasure in doing things: not at all 2. Feeling down, depressed, or hopeless: not at all 3. Trouble falling or staying asleep, or sleeping too much: not at all 4. Feeling tired or having little energy: not at all 5. Poor appetite or overeating: not at all 6. Feeling bad about yourself - or that you are a failure or have let yourself or your family down: not at all 7. Trouble concentrating on things, such as reading the newspaper or watching television: not at all 8. Moving or speaking so slowly that other people could have noticed. Or the opposite - being so fidgety or restless that you have been moving around a lot more than usual: not at all 9. Thoughts that you would be better off or of hurting yourself in some way: not at all Total score: 0 Depression Screening Interpretation: Negative Depression Screening Done: Yes 64001 - PHQ-9 Billing: Yes Source: Developed by Drs. Percy Quezada, Rhianna Overton, German Blackwell and colleagues, with an educational dhara from [employer]. Thrive Questionnaire Date Thrive assessed: 03/30/24 I am a: Patient What is your living situation today?: I have a steady place to live Within the past 12 months, did the food you bought not last and you didn't have the money to get more?: Often true Within the past 12 months, did you worry whether your food would run out before you got money to buy more?: Never true Do you have trouble paying for medicines?: No Do you have trouble getting transportation to medical appointments?: No Do you have trouble paying your heating and electricity bill?: No Do you have trouble taking care of your child, family member or friend?: No Do you have trouble with day-to-day activities such as bathing, preparing meals, shopping, managing finances, etc.?: No Are you currently unemployed and looking for a job?: I choose not to answer this question Are you interested in more education?: No Please select the resources that you would like help with: None Currently or been in a relationship where the following occur: I choose not to answer THRIVE Score: 1 AUDIT C Alcohol Use Questionnaire (AUDIT-C) 1. How often do you have a drink containing alcohol?: 2-4 times a month 2. How many drinks containing alcohol do you have on a typical day when you are drinking?: 1 or 2 3. How often do you have six or more drinks on one occasion?: Never Total Score: 2 TERE-7 AMB Questionnaire TERE-7 Date TERE - 7 assessed: 09/04/23 Feeling nervous, anxious, or on edge: 0 = Not at all Not being able to stop or control worryin = Not at all Worrying too much about different things: 0 = Not at all Trouble relaxin = Several days Being so restless that it is hard to sit still: 1 = Several days Becoming easily annoyed or irritable: 0 = Not at all Feeling afraid as if something awful might happen: 0 = Not at all Total TERE-7 score (0-4 normal; 5-9 mild; 10-14 moderate; 15-21 severe): 2 Source: Developed by Drs. Percy Quezada, Rhianna Overton, German Blackwell and colleagues, with an educational dhara from [employer]. TERE-7 Assessment Billing TERE-7 Assessment Tool: TERE-7 Assessment 17812 Review of Systems Const All systems reviewed & are unremarkable except as noted in HPI and below Card Reports chest pain at rest, Reports chest pain with activity, Denies edema, Denies irregular heart rhythm, Denies claudication, Denies dyspnea, Denies dyspnea on exertion, Denies orthopnea, Denies paroxysmal nocturnal dyspnea and Denies slow heart rate Resp Denies cough, Denies dyspnea and Denies dyspnea on exertion GI Denies abdominal pain, Denies change in bowel habits, Denies excessive flatus, Denies nausea and Denies vomiting Denies urinary incontinence, Denies urinary hesitancy and Denies urinary urgency Musc Denies abnormal gait, Reports back pain, Denies atrophy, Denies deformity, Reports arthralgias and Denies limited range of motion Neuro Denies abnormal gait and Denies lack of coordination Physical exam (Primary Care) Vital Signs: Last Vital Signs Pulse 80 03/31/24 12:33 BP 114/70 03/31/24 12:33 Pulse Ox 97 03/31/24 12:33 Oxygen Delivery Method Room Air 03/31/24 12:33 BMI result Body Mass Index 31.3 BMI Assessment/Plan discussion: High BMI High, discussed plan: lifestyle, weight reduction, dietary, physical activity and alcohol moderation Tobacco/Smoking Status: Tobacco use Status Tobacco use date assessed 09/04/23 03/31/24 12:39 Patient Tobacco Use Status Never used Tobacco 03/31/24 12:39 e-Cigarette/Vaping Use Never Used 03/31/24 12:39 PHQ-9: PHQ-9 Score PHQ-9: Total score 0 03/31/24 12:39 Depression Screening Interpretation: Negative Thrive Assessment: Date of Thrive Assessment Date Thrive assessed 03/30/24 03/31/24 12:39 Currently or been in a relationship where the following occur: I choose not to answer HENME Head: Yes normal to inspection, Yes normocephalic and Yes atraumatic Ears: external ears normal Eyes General: appearance normal, both eyes and all related structures Eyelids: Yes eyelids normal Conjunctivae: conjunctivae normal Neck Neck: Yes normal visual inspection and Yes supple Resp Effort & Inspection: normal respiratory effort Auscultation: clear to auscultation bilaterally Cardio Jugular venous distension: no JVD Rate: regular rate Rhythm: regular rhythm Heart sounds: S1 normal heart sound present and S2 normal heart sound present GI Inspection: Yes normal to inspection Palpation (GI): Soft to palpation and nontender Auscultation: normal bowel sounds Skin General skin exam: no rashes or lesions noted Neuro General: no focal motor deficits Extrem General: Yes full ROM Psych Appearance: grossly normal Assessment and Plan Assessment & Plan (1) Physical exam: Code(s): Z00.00 - Encounter for general adult medical examination without abnormal findings Plan: Repeat in a year. (2) Lumbar pain: Code(s): M54.50 - Low back pain, unspecified Plan: Referred to pain management. (3) Chest pain: Code(s): R07.9 - Chest pain, unspecified Plan: EKG ordered. (4) Polyarthralgia: Code(s): M25.50 - Pain in unspecified joint Plan: Referred to rheumatology. Orders: Orders Lipid Panel Today E78.5 - Hyperlipidemia, unspecified, R07.9 - Chest pain, unspecified Thyroid Stimulating Hormone Today R07.9 - Chest pain, unspecified CRP High Sensitivity Today M25.50 - Pain in unspecified joint MM screening mammo BI Today Z12.31 - Encounter for screening mammogram for malignant neoplasm of breast ECG 12 lead EKG Today R07.9 - Chest pain, unspecified Vitamin D 25-OH Total Today E55.9 - Vitamin D deficiency, unspecified Comprehensive [place]. Panel Fast Today R07.9 - Chest pain, unspecified Erythrocyte Sedimentation Rate Today M25.50 - Pain in unspecified joint Cyclic Citrullinated Peptide Today M25.50 - Pain in unspecified joint Rheumatoid Factor Today M25.50 - Pain in unspecified joint Referrals LOG SNAKER Referral Z12.4 - Encounter for screening for malignant neoplasm of cervix Rheumatology Referral M25.50 - Pain in unspecified joint Pain Management Referral M54.50 - Low back pain, unspecified Open Access Screening Colonoscopy Referral Z12.11 - Encounter for screening for malignant neoplasm of colon Coding Level of Care Code Est Pt Level 3 (43399) Est Pt Prev Care 40-64y(49367) Diagnoses Physical exam Z00.00 Lumbar pain M54.50 Chest pain R07.9 Polyarthralgia M25.50 Additional Codes TERE-7 Assessment Billing - TERE-7 Assessment Tool: TERE-7 Assessment 85015 ([id number]) Time Spent (min) 35
== END 2024-03-31 13:01 | disposition home or self-care (01) ==
PROVIDERS: PCP Internal Medicine; Visit Provider Internal Medicine
DX: Z00.00 Encounter for general adult medical examination without abnormal findings (principal); M54.50 Low back pain, unspecified; R07.9 Chest pain, unspecified; M25.50 Pain in unspecified joint
CPT/HCPCS: 99213; 99396

== ENCOUNTER 2024-04-12 10:02 | Outpatient (AMB) | payer OTHER, SELFPAY ==
--- NOTE | 2024-04-12 10:03 | MHC.OFFVIS ---
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 Denies any past or recent trauma, injury or falls. Back pain is axial and also radiates into lateral hips and buttocks, but no radiation of pain below knee level. Denies previous spine surgery or injections. 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 Her work involves regular bending, lifting, twisting, pulling which significantly exacerbates her chronic low back pain. Patient completed physical therapy, total of 12 sessions, 2 months ago without significant improvement in her pain or functioning. She continues to stay active despite the pain, walks daily for home exercise program. Patient also presents with localized tenderness in bilateral lateral hip areas. Pain is most severe in the mornings, rated at 10/10 and least severe during the day and evening, rated at 7/10. She is interested to undergo bilateral greater trochanteric bursa injections after obtaining spine imaging. Right hip xray is normal. Denies any fever or chills, abdominal or groin pain, foot drop, weakness, bladder or bowel dysfunction or saddle anesthesia. Location: Lower back, bilateral hip pain Duration: Chronic pain >3 years Characteristics of symptom or complaint: Aching, stabbing, throbbing, burning, sore, radiating, heavy, hurting, dull Aggravating or associated factors: Movement, standing straight, side sleeping, lumbar extension, cold weather Relieving factors: Walking, Tylenol, heat pad, hot shower, Ibuprofen Treatment: PT -12 sessions, no improvement; daily walking 60 min for [facility] Medical History Moderate recurrent major depression Physical exam Left median nerve neuropathy Onychomycosis Normocytic anemia Abdominal pain Left knee pain Screening for cervical cancer Arm numbness Left shoulder pain Obese Surgical History Hx laparoscopic cholecystectomy Hx of tubal ligation H/O gastric bypass Family History Mother No problems noted. Father No problems noted. Social History Housing: House Alcohol intake: current Alcohol intake frequency: holidays/special occasions only Alcohol type: beer Patient Tobacco Use Status: Never used Tobacco e-Cigarette/Vaping Use: Never Used Second Hand Smoke Exposure: No Advance Directives Date on File: 01/26/21 service: No Current occupational status: employed Current occupational exposures/hazards: No Cognitive needs: No Hearing needs: No Vision needs: No Review of Systems Const All systems reviewed & are unremarkable except as noted in HPI and below Physical Exam Vital Signs: Last Vital Signs Pulse 72 04/12/24 10:07 BP 125/66 04/12/24 10:07 Pulse Ox 99 04/12/24 10:07 Oxygen Delivery Method Room Air 04/12/24 10:07 BMI result Body Mass Index 31.0 General: Appears afebrile. Alert and oriented. Mood and affect appropriate. Follows and participates in conversation appropriately. Respiratory effort is unlabored. No cough. Able to transition from sit to stand unassisted. Ambulates with bilaterally normal heel strike and toe off. General: Yes no CVA tenderness Back/Spine/Pelvis Other: Limited lumbar ROM due to pain. Moderate pain with lumbar extension and axial rotations, and mild to moderate with bending or flexing forward. Demonstrates 5/5 strength of quadriceps bilaterally as well as flexion/dorsiflexion of bilateral feet against resistance. 2+ pedal pulses bilaterally. Seated straight leg rise with dorsiflexion negative bilaterally. +2 patellar and achilles reflexes bilaterally. Facet loading test positive bilaterally. Aparna sign, Da?s, Gaenslen, Pelvic compression and Stinchfield tests are positive bilaterally. No groin pain with I/E hip rotations. +TTP to bilateral GTB. Valsalva maneuver negative. Back: no CVA tenderness Cervical Spine: cervical ROM normal, No cervical muscular tenderness and No Cervical spine tenderness Thoracic/Lumbar Spine: thoracic and lumbar spine normal to inspection, No Thoracic/lumbar spine scar(s), Lasegue's sign negative, straight leg raise negative bilaterally, pain with thoraco-lumbar ROM, thoraco-lumbar ROM limited, No thoracic spinal tenderness and lumbar spinal tenderness (L4-S1) Sacroiliac joints: bilaterally tender to palpation Results Reviewed Results Reviewed: CT abdomen pelvis wo IV con 08/22/23 OSSEOUS STRUCTURES: There is a mild T11 anterior wedge compression fracture. At T11-T12, there is moderate degenerative disc disease, with vacuum phenomenon. At L4-L5, there is marked degenerative disc disease, with vacuum phenomenon. There is multi-level mild thoracic spondylosis. No acute or aggressive osseous finding is noted. XR hip RT min 2V 12/02/23 IMPRESSION: Normal right hip. Assessment & Plan Assessment & Plan (1) Lumbosacral spondylosis: Code(s): M47.817 - Spondylosis without myelopathy or radiculopathy, lumbosacral region Category: Medical (2) Sacroiliitis: Code(s): M46.1 - Sacroiliitis, not elsewhere classified Category: Medical (3) Lumbar degenerative disc disease: Code(s): M51.36 - Other intervertebral disc degeneration, lumbar region Category: Medical (4) Chronic low back pain: Code(s): M54.50 - Low back pain, unspecified; G89.29 - Other chronic pain Category: Medical (5) Muscle spasm of back: Code(s): M62.830 - Muscle spasm of back Category: Medical Plan Lumbar spine and SIJ imaging to assess degree of degenerative changes, any subluxation, listhesis, compression fractures or pars defects. Pain is consistent with axial, discogenic, sacroiliac joint and GTB pain components. Discussed interventional treatments for current pain generators. Tentatively plan for bilateral therapeutic GTB steroid injections with local and fluoroscopy. Expectations, risks and benefits were reviewed. Scripts provided for lidocaine patch, diclofenac gel, and methocarbamol. Side effects and precautions were discussed with patient. All questions and concerns have been answered and patient agreed with the treatment plan. Follow-up for x-ray results and sooner as needed. Orders: Orders XR lumbar spine 4V min Today G89.29 - Other chronic pain, M46.1 - Sacroiliitis, not elsewhere classified, M47.817 - Spondylosis without myelopathy or radiculopathy, lumbosacral region, M51.36 - Other intervertebral disc degeneration, lumbar region, M54.50 - Low back pain, unspecified XR sacroiliac joint min 3V Today G89.29 - Other chronic pain, M46.1 - Sacroiliitis, not elsewhere classified, M47.817 - Spondylosis without myelopathy or radiculopathy, lumbosacral region, M51.36 - Other intervertebral disc degeneration, lumbar region, M54.50 - Low back pain, unspecified Medications: New lidocaine 5% leave on most painful area for up to 12 hrs topical 30 ea 3RF pain G89.29 - Other chronic pain, M47.817 - Spondylosis without myelopathy or radiculopathy, lumbosacral region, M54.50 - Low back pain, unspecified diclofenac sodium 1% (Voltaren Arthritis Pain) apply to single knee, ankle, foot; for foot includes sole/toes/top of foot 4 grams topical QID 100 grams 1RF pain methocarbamol 750 mg PO BID 30 tabs 0RF muscle spasms G89.29 - Other chronic pain, M54.50 - Low back pain, unspecified, M62.830 - Muscle spasm of back Coding Level of Care Code New Pt Level 4 (06484) Complex EM visit Add On G2211 Diagnoses Lumbosacral spondylosis M47.817 Sacroiliitis M46.1 Lumbar degenerative disc disease M51.36 Chronic low back pain M54.50; G89.29 Muscle spasm of back M62.830
[2024-04-12 10:07] VITALS: BP 125/66; PULSE 72; O2SAT 99; BMI 31.0
== END 2024-04-12 10:43 | disposition home or self-care (01) ==
PROVIDERS: PCP Internal Medicine; Visit Provider Nurse Practitioner Family
DX: M47.817 Spondylosis without myelopathy or radiculopathy, lumbosacral region (principal); M46.1 Sacroiliitis, not elsewhere classified; M51.36 Other intervertebral disc degeneration, lumbar region; M54.50 Low back pain, unspecified; G89.29 Other chronic pain; M62.830 Muscle spasm of back
CPT/HCPCS: 99204; G2211

== ENCOUNTER → 2024-04-12 10:02 | Outpatient (BNVA) | payer OTHER, SELFPAY | PROVIDERS: PCP Internal Medicine; Visit Provider Nurse Practitioner Family | DX: M47.817 Spondylosis without myelopathy or radiculopathy, lumbosacral region (principal); M46.1 Sacroiliitis, not elsewhere classified; M51.36 Other intervertebral disc degeneration, lumbar region; M54.50 Low back pain, unspecified; G89.29 Other chronic pain; M62.830 Muscle spasm of back | CPT/HCPCS: 99202 ==

== ENCOUNTER 2024-06-07 10:43 | Outpatient (AMB) | payer OTHER, SELFPAY ==
--- NOTE | 2024-06-07 10:54 | A.OFFVIS_ITS ---
Vital Signs 06/07/24 10:55 Height 5 ft 8 in Weight 213 lb 13.574 oz BMI 32.5 BP 120/68 Blood Pressure Location Lt brachial Position Sitting Pulse 63 Pulse Source Pulse Oximeter Pulse Oximetry (%) 96 Oxygen Delivery Method Room Air Intake Visit Reasons: Polyarthralgia/Unable to Lm MBF Intake Note: Patient presents today with polyarthralgia, she was internally referred by Dr. Villagomez. Patient states it's been going on for a year and half, she takes Tylenol and Naproxen. Allergies morphine [MORPHINE] Adverse Reaction (Intermediate, Verified 06/07/24 10:56) BAD REACTION , respiratory, SOB Medication List - Last Reconciled 06/07/24 by Sarahy Jesus MD celecoxib (Celebrex) 200 mg PO BID 90 days cholecalciferol (vitamin D3) 50 mcg PO DAILY 90 days diclofenac sodium 1% (Voltaren Arthritis Pain) 4 grams topical QID lidocaine 5% leave on most painful area for up to 12 hrs topical methocarbamol 750 mg PO BID pregabalin 75 mg PO BID 90 days HPI Comments Details: Patient is a 53-year-old female with recurrent major depression who presents for evaluation of polyarthralgias Patient states that for the past year she has been having widespread whole-body pain. There was no progression in terms of the joints that were involved. She states she woke 1 morning and had whole-body pain. Pain is worse in her hips. She denies swelling to her hands. She does report stiffness which improves after 2-3 hours. Denies rashes, photosensitivity, alopecia, oral/nasal ulcers, sicca symptoms, lymphadenopathy, chest pain/shortness of breath, foamy urine, lower extremity edema, muscle weakness, Raynaud's Also denies history of seizure, CVA, psychosis, history of kidney problems, hist ory of cytopenias, history of VTE including PE or DVTs Preliminary diagnostic criteria for fibromyalgia: Widespread pain index is 9, somatic symptoms is also 9. Total score 14. [facility] Medical History Moderate recurrent major depression Physical exam Left median nerve neuropathy Onychomycosis Normocytic anemia Abdominal pain Left knee pain Screening for cervical cancer Arm numbness Left shoulder pain Obese Surgical History Hx laparoscopic cholecystectomy Hx of tubal ligation H/O gastric bypass Family History Mother No problems noted. Father No problems noted. Social History Housing: House Alcohol intake: current Alcohol intake frequency: holidays/special occasions only Alcohol type: beer Patient Tobacco Use Status: Never used Tobacco e-Cigarette/Vaping Use: Never Used Second Hand Smoke Exposure: No Advance Directives Date on File: 01/26/21 service: No Current occupational status: employed Current occupational exposures/hazards: No Cognitive needs: No Hearing needs: No Vision needs: No Review of Systems Const Details: Review of Systems Constitutional: Denies fever, chills, weight loss ENT: Denies vision changes, eye pain or eye redness, dental caries, dry mouth GI: Denies nausea, vomiting, diarrhea, abdominal pain, change in BM Pulm: Denies SOB, CORONEL, hemoptysis, wheezing Cards: Denies chest pain, palpitations Skin: Denies Raynaud's, rash, nail changes, photosensitivity, COMPLIANCE EXAMINER: Denies headaches, weakness, paresthesias, recurrent falls MSK: as per HPI All other systems reviewed and are unremarkable except noted above Physical Exam Vital Signs: Last Vital Signs Pulse 63 06/07/24 10:55 BP 120/68 06/07/24 10:55 Pulse Ox 96 06/07/24 10:55 Oxygen Delivery Method Room Air 06/07/24 10:55 BMI result Body Mass Index 32.5 Physical Examination CONSTITUITIONAL Patient alert and cooperative. Well appearing and in no apparent painful distress HEENT Conjunctiva and sclera clear. ?Pupils equal round and reactive to light. ?No lymphadenopathy. ?Normal dentition. No oral or nasal ulcers noted. No evidence of discoid rash to the malu of ears CHEST/RESPIRATORY SYSTEM Normal respiratory effort and able to speak in complete sentences. ?Clear to auscultation bilaterally. ?No crackles, rales, rhonchi, wheezes heard. CARDIAC SYSTEM Regular rate and rhythm. ?S1 and S2 heard no murmurs. ?Radial pulses intact bilaterally MSK Hands: ?Good survey technician strength bilaterally - 5/5. ?No deformities noted. ?No synovitis noted to the MCPs, PIPs or DIPs. ?No tenderness to palpation of these joints. Wrists: ?Full range of motion at the wrists without pain. ?No tenderness to palpation or synovitis noted to the wrists. Elbows: Full range of motion without pain. No tenderness, weakness, swelling, increased warmth or erythema. Shoulders: Full range of motion without pain. No tenderness, weakness, swelling, increased warmth or erythema. Hips: Full range of motion without pain. Pain in bilateral hips on figure 4 and stretching Hip bursa: Mild tenderness to palpation Knees: ?Full range of motion. ?No tenderness, swelling, increased warmth or erythema.?No effusion or crepitations Ankles: Full range of motion. ?No tenderness, swelling, increased warmth or erythema.? Feet: ?Negative squeeze test. ?No tenderness to palpation or swelling of the MTPs. Tender points:??Tender points noted to the upper trapezius bilaterally, lower back bilaterally and bilateral trochanteric bursa. SKIN Skin intact without rashes. Results Reviewed Results Reviewed: Laboratory Tests 12/02/23 11:13 WBC 4.4 L RBC 4.48 Hgb 11.2 L Hct 36.7 L Plt Count 342 D 25-OH Vitamin D Total 6.9 L Hip XR 11/2023 No evidence of osteoarthritis. Assessment & Plan Assessment & Plan (1) Polyarthralgia: Code(s): M25.50 - Pain in unspecified joint Category: Medical Plan: #Polyarthralgia Patient with polyarthralgia. Differentials include inflammatory type arthritis such as rheumatoid arthritis, lupus or seronegative spondyloarthritis versus central sensitization syndrome such as fibromyalgia. Based on her preliminary diagnostic criteria for fibromyalgia she meets criteria for fibromyalgia with a widespread pain index greater than 5 and a somatic symptom score greater than 5 (her scores were 9 and 9 respectively). We will start treatment for fibromyalgia based on this however primary fibromyalgia is still a diagnosis of exclusion so I will check RF, CCP and inflammatory markers. Given that her main problems are pain and sleep I will start her on pregabalin 75 mg to be titrated up to twice a day. Celebrex 200 mg twice a day. She will follow up in 4 months and we will reassess. I will also check x-rays of hands and wrists Plan I spent 45 minutes reviewing the record and labs, seeing the patient, discussing the treatment plan and documenting in the medical record ? Orders: Orders Comprehensive Met. Panel Today M25.50 - Pain in unspecified joint Vitamin D 25-OH (D2 and D3) Today M25.50 - Pain in unspecified joint Protein Electrophoresis, Serum Today M25.50 - Pain in unspecified joint XR hand wrist LT Today M25.50 - Pain in unspecified joint XR hand wrist RT Today M25.50 - Pain in unspecified joint Cyclic Citrullinated Peptide Today M25.50 - Pain in unspecified joint Rheumatoid Factor Today M25.50 - Pain in unspecified joint Complete Blood Count Auto Diff Today M25.50 - Pain in unspecified joint C Reactive Protein Today M25.50 - Pain in unspecified joint Erythrocyte Sedimentation Rate Today M25.50 - Pain in unspecified joint Thyroid Stimulating Hormone Today M25.50 - Pain in unspecified joint Immunofixation Pnl, Serum Today M25.50 - Pain in unspecified joint Medications: New pregabalin 75 mg PO BID 90 days 180 caps 1RF M25.50 - Pain in unspecified joint, M79.7 - Fibromyalgia celecoxib (Celebrex) 200 mg PO BID 90 days 180 caps 1RF M25.50 - Pain in unspecified joint Coding Level of Care Code New Pt Level 4 (75046) Diagnoses Polyarthralgia M25.50
[2024-06-07 10:55] VITALS: BP 120/68; PULSE 63; O2SAT 96; BMI 32.5
== END 2024-06-07 11:29 | disposition home or self-care (01) ==
PROVIDERS: PCP Internal Medicine; Visit Provider Student in an Organized Health Care Education/Training Program
DX: M25.50 Pain in unspecified joint (principal)
CPT/HCPCS: 99204

== ENCOUNTER → 2024-06-07 10:43 | Outpatient (BNVA) | payer OTHER, SELFPAY | PROVIDERS: PCP Internal Medicine; Visit Provider Student in an Organized Health Care Education/Training Program | DX: M79.7 Fibromyalgia (principal); M25.50 Pain in unspecified joint | CPT/HCPCS: 99202 ==

== ENCOUNTER 2024-06-08 09:24 | Outpatient (REF) | payer OTHER, SELFPAY ==
--- NOTE | 2024-06-08 09:32 | ECG_ITS ---
Test Reason : chest pain Blood Pressure : / mmHG Vent. Rate : 068 BPM Atrial Rate : 068 BPM P-R Int : 130 ms QRS Dur : 088 ms QT Int : 396 ms P-R-T Axes : 002 009 011 degrees QTc Int : 421 ms Normal sinus rhythm Normal ECG When compared with ECG of 04-DEC-2021 12:21, No significant change was found Referred By: Gloria Becker Electronically Signed By:Vijay Florez
[2024-06-08 09:52] LABS: MANUAL DIFF FLAG NO
[2024-06-08 10:26] LABS: Basophils Percent Auto 0.9 % (0-2); Eosinophils Absolute Auto 0.1 X10*3/uL (0.0-0.4); Hemoglobin 9.9 g/dl (12.0-16.0); Imm Gran Abs Auto 0.01 X10*3/uL (0.00-0.03); Imm Gran Pct Auto 0.3 % (0.0-0.4); Lymphocytes Absolute Auto 1.1 X10*3/uL (1.2-4.9); Lymphocytes Percent Auto 32.5 % (20-40); Mean Corpuscular HGB Conc 30.9 g/dl (31.0-35.0); Mean Corpuscular Hemoglobin 25.8 pg (27.0-33.0); Mean Corpuscular Volume 83.3 fL (80.0-98.0); Mean Platelet Volume 10.3 fL (9.4-12.3); Monocytes Absolute Auto 0.3 X10*3/uL (0.1-1.2); Monocytes Percent Auto 7.8 % (2-11); Neutrophils Absolute Auto 1.8 x10*3/uL (2.0-8.3); Neutrophils Percent Auto 55.5 % (45-73); Platelet Count 313 X10*3/uL (160-400); Red Blood Count 3.84 X10*6/uL (4.20-5.50); Red Cell Distribution Width 17.1 % (11.0-16.0); White Blood Count 3.3 X10*3/uL (4.8-10.8)
[2024-06-08 11:08] LABS: Erythrocyte Sedimentation Rate 7 MM/HR (0-20)
[2024-06-08 11:15] LABS: Rheumatoid Factor < 13.0 IU/mL (<15.0)
[2024-06-08 11:23] LABS: Alanine Aminotransferase 14 U/L (0-31); Albumin Level 3.9 g/dL (3.5-5.0); Alkaline Phosphatase 62 U/L (39-117); Anion Gap 11 (12-20); Aspartate Amino Transferase 20 U/L (5-31); Bilirubin Total 0.5 mg/dL (0.0-1.0); Blood Urea Nitrogen 14 mg/dL (9-16); Carbon Dioxide 26 mmol/L (22-29); Chloride 107 mmol/L (96-108); Estimated Glomerular Filt Rate > 60; Glucose Random 102 mg/dL (60-115); Potassium 3.6 mmol/L (3.3-5.1); Sodium 140 mmol/L (135-145); Total Protein 6.9 g/dL (6.5-8.0)
[2024-06-08 11:42] LABS: Thyroid Stimulating Hormone 3.25 uIU/mL (0.32-4.0)
[2024-06-10 20:38] LABS: Cyclic Citrullinated Peptide <16 UNITS
[2024-06-10 21:58] LABS: Prot Elec - Alpha1 0.3 g/dL (0.2-0.3); Prot Elec - Alpha2 0.7 g/dL (0.5-0.9); Prot Elec - Beta 1 0.5 g/dL (0.4-0.6); Prot Elec - Beta 2 0.4 g/dL (0.2-0.5); Prot Elec - Gamma 1.1 g/dL (0.8-1.7); Prot Elec - Total Protein 6.9 g/dL (6.1-8.1)
[2024-06-11 13:32] LABS: IgA 250 mg/dL (47-310); IgG 1101 mg/dL (600-1640); IgM 231 mg/dL (50-300)
[2024-06-13 15:48] LABS: Vitamin D 25-OH, D2 <4 ng/mL; Vitamin D 25-OH, D3 7 ng/mL; Vitamin D 25-OH, Total 7 ng/mL (30-100)
== END 2024-06-08 09:25 | disposition home or self-care (01) ==
LOC: HO.XRAY 09:24
PROVIDERS: Absent Provider Student in an Organized Health Care Education/Training Program; PCP Internal Medicine; Visit Provider Internal Medicine
DX: M25.50 Pain in unspecified joint (principal); R07.9 Chest pain, unspecified; M47.817 Spondylosis without myelopathy or radiculopathy, lumbosacral region; M46.1 Sacroiliitis, not elsewhere classified; M51.360 Other intervertebral disc degeneration, lumbar region with discogenic back pain only; G89.29 Other chronic pain
CPT/HCPCS: 36415; 72110; 72202; 73110; 73130; 80053; 82306; 82784; 84165; 84443; 85025; 85652; 86140; 86200; 86334; 86431; 93005

== ENCOUNTER → 2024-06-08 09:32 | Outpatient (BNV) | payer OTHER, SELFPAY | PROVIDERS: Absent Provider Student in an Organized Health Care Education/Training Program; PCP Internal Medicine; Visit Provider Internal Medicine Cardiovascular Disease | DX: R07.9 Chest pain, unspecified (principal) | CPT/HCPCS: 93010 ==

== ENCOUNTER 2024-08-15 22:28 | Emergency (ER) | payer OTHER, SELFPAY ==
--- NOTE | 2024-08-15 | ECG_ITS ---
Test Reason : CHEST PAIN Blood Pressure : */* mmHG Vent. Rate : 67 BPM Atrial Rate : 67 BPM P-R Int : 134 ms QRS Dur : 86 ms QT Int : 404 ms P-R-T Axes : 1 0 4 degrees QTcB Int : 426 ms Normal sinus rhythm Normal ECG When compared with ECG of 08-Jun-2024 09:31, No significant change was found Referred By: Generic ED Physician Electronically Signed By: HUANG HERRERA MD
--- NOTE | ~2024-08-15 | XR_ITS ---
CLINICAL HISTORY: cp sob 1 view chest x-ray Comparison: CR - CHEST 2 VIEWS - 09/23/18 08:50 EST Findings: The lungs are clear. Normal size heart. No acute fracture. IMPRESSION: 1. No acute findings. This document has been electronically signed by: Patrick Hunt MD on 08/15/2024 23:41:09
[2024-08-15 22:36] VITALS: BP 136/74; PULSE 68; RESP 18; TEMP 36.4; O2SAT 96; BMI 32.4
[2024-08-15 22:50] LABS: MANUAL DIFF FLAG NO
[2024-08-15 22:51] LABS: Eosinophils Absolute Auto 0.1 X10*3/uL (0.0-0.4); Eosinophils Percent Auto 2.4 % (0-4); Hematocrit 31.4 % (37.0-47.0); Hemoglobin 9.8 g/dl (12.0-16.0); Imm Gran Abs Auto 0.01 X10*3/uL (0.00-0.03); Imm Gran Pct Auto 0.2 % (0.0-0.4); Lymphocytes Absolute Auto 1.5 X10*3/uL (1.2-4.9); Lymphocytes Percent Auto 37.3 % (20-40); Mean Corpuscular HGB Conc 31.2 g/dl (31.0-35.0); Mean Corpuscular Hemoglobin 25.1 pg (27.0-33.0); Mean Corpuscular Volume 80.3 fL (80.0-98.0); Mean Platelet Volume 10.3 fL (9.4-12.3); Monocytes Absolute Auto 0.4 X10*3/uL (0.1-1.2); Monocytes Percent Auto 10.4 % (2-11); Neutrophils Percent Auto 48.7 % (45-73); Platelet Count 334 X10*3/uL (160-400); Red Blood Count 3.91 X10*6/uL (4.20-5.50); Red Cell Distribution Width 15.7 % (11.0-16.0); White Blood Count 4.1 X10*3/uL (4.8-10.8)
--- NOTE | 2024-08-15 22:56 | ED_ITS ---
HPI - Chest Pain General Chief Complaint: Chest Pain Stated Complaint: chest pains Time Seen by Provider: 08/15/24 22:56 Source: patient Mode of arrival: ambulatory Limitations: no limitations History of Present Illness ED Provider: Joyce Ahn PA-C HPI narrative: Patient is a 53 year old assigned female at with a history of chronic low back pain, anemia, and lumbar DDD, presenting to the emergency department today with substernal / central chest pain. Patient states that over the last 4 days she has had chest pain that feels like burning and sometimes she feels it spasm like her esopahgus is closing. Patient denies any dizziness, lightheadedness, abdominal pain, nausea, vomiting, fever, chills, blurry vision, double vision, loss of vision, difficulty breathing, shortness of breath, back pain, night sweats, pain with urination, increased urinary frequency, increased urinary urgency, blood in her urine or stool, syncope or a near syncopal episode, recent trauma or falls, bowel incontinence, bladder incontinence, or any other complaints at this time. MD complaint: chest pain Related Data Previous Rx's ?Medication ?Instructions ?Recorded diclofenac sodium 1 % topical gel 4 g topical QID pain #100 grams 04/12/24 (Voltaren Arthritis Pain) lidocaine 5 % topical patch See Rx Instructions topical 04/12/24 .COMPLEX pain #30 ea methocarbamol 750 mg tablet 750 mg PO BID muscle spasms #30 04/12/24 tabs celecoxib 200 mg capsule (Celebrex) 200 mg PO BID 90 days #180 caps 06/07/24 pregabalin 75 mg capsule 75 mg PO BID 90 days #180 caps 06/07/24 cholecalciferol (vitamin D3) 1,250 1,250 mcg PO QWEEK 3 months #13 06/29/24 mcg (50,000 unit) capsule caps omeprazole 20 mg capsule,delayed 20 mg PO DAILY 7 days #7 caps 08/16/24 release Allergies Allergy/AdvReac Type Severity Reaction Status Date / Time morphine [MORPHINE] AdvReac Intermediate BAD Verified 08/15/24 22:38 REACTION , respiratory, SOB Review of Systems 2 Constitutional: Constitutional: Reports no additional constitutional complaints, Denies chills, Denies fever(s) and Denies night sweats Eyes: Eyes: Reports no additional eye complaints, Denies blurry vision, Denies change in vision, Denies diplopia, Denies eye discharge, Denies loss of vision and Denies eye pain ENT: Denies dizziness Cardiovascular: Cardiovascular: Reports no additional cardiovascular complaints, Reports chest pain, Denies lightheadedness, Denies Loss of Consciousness and Denies dyspnea Respiratory: Respiratory: Reports no additional respiratory complaints and Denies dyspnea Gastrointestinal: Gastrointestinal: Reports no additional gastrointestinal complaints, Denies abdominal pain, Denies melena, Denies hematochezia, Denies change in bowel habits and Denies change in stool character Genitourinary: Genitourinary: Denies hematuria, Denies urinary frequency, Denies dysuria, Denies urinary incontinence, Denies urinary hesitancy and Denies urinary urgency Musculoskeletal: Musculoskeletal: Reports no additional musculoskeletal complaints, Denies numbness and Denies tingling Neurologic: Denies dizziness, Denies loss of vision, Denies numbness and Denies tingling Psychiatric: Psychiatric: Reports no additional psychiatric complaints Endocrine: Endocrine: Reports no additional endocrine complaints Hematologic/Lymphatic: Hematologic/Lymphatic: Reports no additional hematologic/lymphatic complaints Allergic/Immunologic: Allergic/Immunologic: Reports no additional allergic/immunologic complaints [facility] Past Medical History Attestation statement: The following information was validated with the patient. Source: old records reviewed and nursing notes reviewed Medical History Hospital discharge follow-up Physical exam Arm numbness Left knee pain Left shoulder pain Muscle spasm of back Lumbar pain Right hip pain Left hip pain Vaginal cyst Screening for cervical cancer Screening for cervical cancer Obese Chest pain Vitamin D deficiency Moderate recurrent major depression Left median nerve neuropathy Onychomycosis Normocytic anemia Abdominal pain Surgical History Hx laparoscopic cholecystectomy Hx of tubal ligation H/O gastric bypass Family History Family History Mother No problems noted. Father No problems noted. Social History Social History Housing: House Alcohol intake: current Alcohol intake frequency: holidays/special occasions only Alcohol type: wine Patient Tobacco Use Status: Never used Tobacco Smoked in Last 30 Days: No e-Cigarette/Vaping Use: Never Used Second Hand Smoke Exposure: No Use of substances other than those prescribed or required for medical reasons: No Advance Directives: No Advance Directives Information Provided: Yes Advance Directives Date on File: 01/26/21 Do you have a plan to hurt others: No Plan Patient : No service: No Current occupational status: employed Current occupational exposures/hazards: No Cognitive needs: No Hearing needs: No Vision needs: No Physical Exam 2 Vital Signs: Vital Signs: Last Vital Signs Temp 98.1 F 08/16/24 00:43 Pulse 65 08/16/24 00:43 Resp 16 08/16/24 00:43 BP 109/55 L 08/16/24 00:43 Pulse Ox 96 08/16/24 00:43 O2 Del Method Room Air 08/16/24 00:43 BMI result Body Mass Index 32.4 Const: General: cooperative, no acute distress, alert and awake Nutritional Appearance: well nourished Orientation/consciousness: patient oriented x3 Limitations: no limitations HEENT: Head: Yes normal to inspection and Yes atraumatic Ears: hearing grossly normal bilaterally and external ears normal General nose exam: Normal external nose present, no nasal discharge noted and no epistaxis Face and sinus: Yes normal facial exam, No abrasion and No laceration Mouth: Normal oral and palatal mucosa present, no drooling and no muffled voice Eyes: General: appearance normal, both eyes and all related structures P eriorbital: periorbital findings normal Eyelids: Yes eyelids normal C onjunctivae: conjunctivae normal Pupils: Equal, round and reactive pupils present EOM: EOMs intact bilaterally Neck: Neck: Yes normal visual inspection, Yes full ROM and Yes no lymphadenopathy Chest: Chest palpation & inspection: normal inspection of the chest Resp: Effort & Inspection: normal respiratory effort and able to speak in complete sentences GI: Inspection: Yes normal to inspection Neuro: General: patient oriented x3 and moves all extremities Cranial nerves: Yes Equal, round and reactive pupils present Cognition (Neuro): n ormal cognition Extrem: General: Yes normal to inspection, Yes full ROM and Yes capillary refill normal Psych: Appearance: grossly normal Mental Status: mental status grossly normal Affect: normal affect Attitude: cooperative Thought process: N ormal thought process present Thought content: Normal thought content present Insight: Good insight present (Psych) Medications Administered Discontinued Medications Generic Name Dose Route Start Last Admin Trade Name Freq PRN Reason Stop Dose Admin Al Hydroxide/Mg Hydroxide 15 ml 08/15/24 23:18 08/16/24 00:05 Magnesium Hydrox/Alum Hydrox 30 Ml Oral.Susp PO 08/15/24 23:19 15 ml ONCE ONE Administration Pantoprazole Sodium 40 mg 08/15/24 22:56 08/15/24 23:16 Pantoprazole Sodium 40 Mg/10 Ml Vial IVPUSH 08/15/24 22:57 40 mg ONCE ONE Administration Medical Decision Making Medical Decision Making [facility] Narrative: Patient is a 53 year old assigned female at with a history of chronic low back pain, anemia, and lumbar DDD, presenting to the emergency department today with substernal / central chest pain. Patient's physical exam was unremarkable. Patient's blood work was unremarkable. Patient's EKG was unremarkable. Patient's chest x-ray showed no acute process. I explained my physical exam findings as well as all test results to the patient. I answered all questions asked by the patient. I stressed the importance of the patient taking her medication as directed (either prescribed or as the over the counter packaging recommends). I stressed the importance of the patient following up with her primary care provider. I stressed the importance of the patient returning to the emergency department immediately if her symptoms were to worsen or if she were to develop any dizziness, shortness of breath, difficulty breathing, chest pain, blurry vision, loss of vision, nausea, vomiting, abdominal pain, fever, chills, back pain, or any other complaints. Patient verbalized agreement and understanding with this treatment plan and discharge. Differential Diagnosis Differential Diagnoses: The differential diagnosis associated with the presentation includes Chest pain NSTEMI STEMI Atypical chest pain Epigastric pain GERD Admission/Observation Consideration of admission/observation: Escalation of care including admission/observation considered Patient would have been admitted to the hospital had her work up had any findings where hospital admission was appropriate and her clinical presentation warranted hospital admission. Lab Data [facility] Lab Attestation statement: I reviewed the patient's lab results. My interpretation of these results are in the [facility] Rationale portion of this note. 08/15/24 22:43 08/15/24 22:43 Labs: Lab Results 08/15/24 08/15/24 Range/Units 22:43 23:21 WBC 4.1 L (4.8-10.8) X10*3/uL RBC 3.91 L (4.20-5.50) X10*6/uL Hgb 9.8 L (12.0-16.0) g/dl Hct 31.4 L (37.0-47.0) % MCV 80.3 (80.0-98.0) fL MCH 25.1 L (27.0-33.0) pg MCHC 31.2 (31.0-35.0) g/dl RDW 15.7 (11.0-16.0) % Plt Count 334 (160-400) X10*3/uL MPV 10.3 (9.4-12.3) fL Immature Gran % (Auto) 0.2 (0.0-0.4) % Neut % (Auto) 48.7 (45-73) % Lymph % (Auto) 37.3 (20-40) % [place] % (Auto) 10.4 (2-11) % Eos % (Auto) 2.4 (0-4) % Baso % (Auto) 1.0 (0-2) % Lymph # (Auto) 1.5 (1.2-4.9) X10*3/uL [place] # (Auto) 0.4 (0.1-1.2) X10*3/uL Eos # (Auto) 0.1 (0.0-0.4) X10*3/uL Baso # (Auto) 0.0 (0.0-0.2) X10*3/uL Abs Immat Gran (auto) 0.01 (0.00-0.03) X10*3/uL Absolute Neuts (auto) 2.0 (2.0-8.3) x10*3/uL Absolute Nucleated RBC 0.000 (0.0-0.012) X10*3/uL Nucleated RBC % (auto) 0.0 (0.0-0.2) /100WBC Sodium 142 (135-145) mmol/L Potassium 4.1 (3.3-5.1) mmol/L Chloride 109 H (96-108) mmol/L Carbon Dioxide 23 (22-29) mmol/L Anion Gap 14 (12-20) BUN 15 (9-16) mg/dL Creatinine 0.68 (0.5-1.4) mg/dL Estim Creat Clear Calc 116.4 Estimated GFR > 60 Random Glucose 108 (60-115) mg/dL Calcium 8.4 D (8.4-10.2) mg/dL Total Bilirubin 0.2 (0.0-1.0) mg/dL AST 20 (5-31) U/L ALT 17 (0-31) U/L Alkaline Phosphatase 68 (39-117) U/L Troponin I High Sens < 2.7 (<3.5-17.0) ng/L Total Protein 7.3 (6.5-8.0) g/dL Albumin 4.1 (3.5-5.0) g/dL Lipase 21 (8-78) U/L Influenza Type A (PCR) NEGATIVE (Negative) Influenza Type B (PCR) NEGATIVE (Negative) RSV RNA Qual (PCR) NEGATIVE (Negative) SARS-CoV-2 RNA (RT-PCR) NEGATIVE (Negative) Independent Interpretation I performed an independent interpretation of an: EKG and Plain X-Ray Interpretation: My interpretation is in agreement with the radiologist's impression of this imaging study. L CLINICAL HISTORY: cp sob 1 view chest x-ray Comparison: CR - CHEST 2 VIEWS - 09/23/18 08:50 EST Findings: The lungs are clear. Normal size heart. No acute fracture. IMPRESSION: 1. No acute findings. This document has been electronically signed by: Patrick Hunt MD on 08/15/2024 23:41:09 Dictated By: Patrick Hunt MD Signed By: Electronically signed by Patrick Hunt MD 08/15/24 2342 I independently interpreted this EKG and am in agreement with the below findings: Vent. Rate: 67 BPM Atrial Rate: 67 BPM P-R Int: 134 ms QRS Dur: 86 ms QT Int: 404 ms P-R-T Axes: 1 0 4 degrees QTcB Int: 426 ms Normal sinus rhythm Normal ECG When compared with ECG of 08-Jun-2024 09:31, No significant change was found DD/ [id number] Radiology Impression Discussion of test interpretation with radiology: I have reviewed the radiologist's reading. Discharge Plan Discharge Clinical Impression: Acute epigastric pain, Atypical chest pain Patient Disposition: Home, Self-Care Instructions: Chest Pain (DC), Epigastric Pain (ED) Additional Instructions: Your work up today showed no emergent / acute findings and was reassuring. Follow up with your primary care provider. Return to the emergency department immediately if your symptoms worsen or if you develop any dizziness, shortness of breath, difficulty breathing, chest pain, blurry vision, loss of vision, nausea, vomiting, abdominal pain, fever, chills, back pain, or any other complaints. Prescriptions: New omeprazole 20 mg capsule,delayed release(DR/EC) 20 mg PO DAILY 7 Days Qty: 7 0RF No Action cholecalciferol (vitamin D3) 1,250 mcg (50,000 unit) capsule 1,250 mcg PO QWEEK 90 Days Qty: 13 0RF pregabalin 75 mg capsule 75 mg PO BID 90 Days Qty: 180 1RF celecoxib [Celebrex] 200 mg capsule 200 mg PO BID 90 Days Qty: 180 1RF lidocaine 5 % adhesive patch,medicated See Rx Instructions topical .COMPLEX Qty: 30 3RF Rx Instructions: leave on most painful area for up to 12 hrs topical diclofenac sodium [Voltaren Arthritis Pain] 1 % gel 4 g topical QID Qty: 100 1RF Rx Instructions: apply to single knee, ankle, foot; for foot includes sole/toes/top of foot methocarbamol 750 mg tablet 750 mg PO BID Qty: 30 0RF Referrals: Gloria Corona MD [Primary Care Provider] - Stand Alone Forms: Work/School Release Interventions: ED Discharge Assessment Last Done: 08/16/24 00:43 Print Language: Belarusian
[2024-08-15 22:58] VITALS: PULSE 67
[2024-08-15 23:08] LABS: Alanine Aminotransferase 17 U/L (0-31); Albumin Level 4.1 g/dL (3.5-5.0); Alkaline Phosphatase 68 U/L (39-117); Anion Gap 14 (12-20); Aspartate Amino Transferase 20 U/L (5-31); Bilirubin Total 0.2 mg/dL (0.0-1.0); Blood Urea Nitrogen 15 mg/dL (9-16); Calcium 8.4 mg/dL (8.4-10.2); Carbon Dioxide 23 mmol/L (22-29); Chloride 109 mmol/L (96-108); Creatinine Clr Calc Pharmacy 116.4; Estimated Glomerular Filt Rate > 60; Glucose Random 108 mg/dL (60-115); Potassium 4.1 mmol/L (3.3-5.1); Sodium 142 mmol/L (135-145); Total Protein 7.3 g/dL (6.5-8.0)
[2024-08-15 23:16] LABS: Troponin-I High Sensitivity < 2.7 ng/L (<3.5-17.0)
[2024-08-15] MEDS: Pantoprazole Sodium 40 MG/10 ML VIAL IVPUSH (23:16)
[2024-08-16 00:03] LABS: Influenza A PCR NEGATIVE (Negative); Influenza B PCR NEGATIVE (Negative); Resp Syncy Virus RNA Qual PCR NEGATIVE (Negative); SARS COV2 PCR INHOUSE NEGATIVE (Negative)
[2024-08-16] MEDS: Magnesium Hydrox/Alum Hydrox 30 ML ORAL.SUSP 15 ML PO (00:05)
[2024-08-16 00:30] LABS: Lipase 21 U/L (8-78)
[2024-08-16 00:43] VITALS: BP 109/55; PULSE 65; RESP 16; TEMP 36.7; O2SAT 96
== END 2024-08-16 00:56 | disposition home or self-care (01) ==
PROVIDERS: Physician Assistant Medical; Emergency Provider Emergency Medicine; PCP Internal Medicine
DX: R07.9 Chest pain, unspecified (principal); R10.13 Epigastric pain; Z03.818 Encounter for observation for suspected exposure to other biological agents ruled out
CPT/HCPCS: 0241U; 36415; 71045; 80053; 83690; 84484; 85025; 93005; 96374; 99284; J2470

== ENCOUNTER → 2024-08-15 22:33 | Outpatient (BNV) | payer OTHER, SELFPAY | PROVIDERS: Emergency Provider Emergency Medicine; PCP Internal Medicine; Visit Provider Internal Medicine Cardiovascular Disease | DX: R07.9 Chest pain, unspecified (principal) | CPT/HCPCS: 93010 ==

== ENCOUNTER → 2024-08-15 22:44 | Outpatient (BNV) | payer OTHER, SELFPAY | PROVIDERS: Emergency Provider Emergency Medicine; PCP Internal Medicine; Visit Provider Radiology Diagnostic Radiology | DX: R07.9 Chest pain, unspecified (principal); R06.02 Shortness of breath | CPT/HCPCS: 71045 ==